=== PATIENT | female | born 1960 | race American Indian/Alaskan Native ===

== ENCOUNTER 2017-02-23 01:38 | Emergency (ER) | payer MEDICAID, OTHER ==
[2017-02-23 01:39] VITALS: BMI 58.5
[2017-02-23 01:46] VITALS: BP 123/92; PULSE 85; RESP 18; TEMP 98.1; O2SAT 98
--- NOTE | 2017-02-23 02:17 | ED PDOC ---
HPI: Chest Pain Time Seen by Provider: 02/23/17 01:49 Chief Complaint (Nursing): Chest Pain Chief Complaint (Provider): chest pain History Per: Patient History/Exam Limitations: no limitations Onset/Duration Of Symptoms: Hrs (3) Current Symptoms Are (Timing): Still Present Additional Complaint(s): 56yo female well known to this provider for multiple previous visits due to recurrent chest pain and anxiety and hx of opiate seeking behavior presents to the ED with c/o chest pain x 3 hours. Patient states she has chest pain related to anxiety and reports not having Ativan which she normally takes for anxiety. Denies n/v, diaphoresis, fever, cough. Patient was seen and evaluated in this ED for similar complaint on 02/01/2017 and 02/10/2017 and discharged. Past Medical History Reviewed: Historical Data, Nursing Documentation, Vital Signs Vital Signs: Last Vital Signs Temp 98.1 F 02/23/17 01:43 Pulse 85 02/23/17 01:43 Resp 18 02/23/17 01:43 BP 123/92 H 02/23/17 01:43 Pulse Ox 98 02/23/17 02:21 - Medical History PMH: Anemia, Anxiety, Arthritis, Asthma, Bronchitis, CAD, CHF, Crohn's Disease, Depression, Deep Vein Thrombosis, Gastritis, Gastrointestinal Ulcer, Gall Bladder Disease, HTN, Hypercholesterolemia, Hyperlipidemia, Malignancy (Colon), Migraine, Peripheral Edema, Pulmonary Embolism, Seizures Denies: Chronic Kidney Disease, Sexually Transmitted Disease - Surgical History Surgical History: Cholecystectomy - Family History Family History: States: Unknown Family Hx, [place], CAD - Social History Current smoker - smoking cessation education provided: No Alcohol: None Drugs: Denies - Immunization History Hx Tetanus Toxoid Vaccination: Yes Hx Influenza Vaccination: Yes Hx Pneumococcal Vaccination: Yes - Home Medications Home Medications: Ambulatory Orders Medication Instructions Recorded Ferrous Sulfate [Feosol] 325 mg PO DAILY 02/29/16 Omeprazole [Prilosec] 40 mg PO DAILY 03/21/16 HYDROmorphone [Dilaudid] 2 mg PO TID #9 tab 08/07/16 Phenytoin, Extended [Dilantin] 100 mg PO QID #16 cer 08/07/16 Albuterol HFA [Ventolin HFA 90 2 puff IH TID 10/07/16 mcg/actuation (8 g)] DiphenhydrAMINE [Benadryl] 25 mg PO PRN PRN 10/07/16 LORazepam [Ativan] 2 mg PO BID 10/07/16 - Allergies Allergies/Adverse Reactions: Allergies Allergy/AdvReac Type Severity Reaction Status Date / Time benzethonium chloride Allergy Intermediate URTICARIA Verified 02/10/17 14:32 benzocaine Allergy Unknown ITCHING Verified 02/10/17 14:32 broccoli Allergy Unknown ITCHING Verified 02/10/17 14:32 ketorolac tromethamine Allergy Unknown ANAPHYLAXIS Verified 02/10/17 14:32 [From Toradol] lidocaine Allergy Unknown ITCHING Verified 02/10/17 14:32 nitroglycerin Allergy Unknown URTICARIA Verified 02/10/17 14:32 pineapple Allergy Unknown ITCHING Verified 02/10/17 14:32 trazodone Allergy Unknown "heart Verified 02/10/17 14:32 flutters", swelling haloperidol [From Haldol] Allergy VOMITING Verified 02/10/17 14:32 haloperidol lactate Allergy VOMITING Verified 02/10/17 14:32 [From Haldol] oxycodone Allergy SHORTNESS Verified 02/10/17 14:32 OF BREATH ziprasidone HCl [From Geodon] Allergy SHORTNESS Verified 02/10/17 14:32 OF BREATH ziprasidone mesylate Allergy SHORTNESS Verified 02/10/17 14:32 [From Geodon] OF BREATH aspirin AdvReac Unknown "heart Verified 02/10/17 14:32 flutters", swelling steroids Allergy Unknown "heart Uncoded 02/10/17 14:32 flutters", swelling Lanacane Allergy SHORTNESS Uncoded 02/10/17 14:32 OF BREATH Steroids Allergy SHORTNESS Uncoded 02/10/17 14:32 OF BREATH Review of Systems ROS Statement: Except As Marked, All Systems Reviewed And Found Negative Constitutional: Positive for: Other (no diaphoresis ). Negative for: Fever Cardiovascular: Positive for: Chest Pain Respiratory: Negative for: Cough Gastrointestinal: Negative for: Nausea, Vomiting Psych: Positive for: Anxiety Physical Exam - Reviewed Nursing Documentation Reviewed: Yes Vital Signs Reviewed: Yes - Physical Exam Appears: Positive for: Well, No Acute Distress Head Exam: Positive for: ATRAUMATIC, NORMAL INSPECTION, NORMOCEPHALIC Skin: Positive for: Normal Color, Warm, Dry Eye Exam: Positive for: Normal appearance, EOMI, PERRL ENT: Positive for: Normal ENT Inspection Neck: Positive for: Normal, Painless ROM, Supple Cardiovascular/Chest: Positive for: Regular Rate, Rhythm. Negative for: Murmur , Tachycardia Respiratory: Positive for: Normal Breath Sounds. Negative for: Wheezing, Respiratory Distress Gastrointestinal/Abdominal: Positive for: Normal Exam, Bowel Sounds, Soft. Negative for: Tenderness Back: Positive for: Normal Inspection. Negative for: L CVA Tenderness, R CVA Tenderness Extremity: Positive for: Normal ROM. Negative for: Deformity, Swelling Neurologic/Psych: Positive for: Alert, Oriented. Negative for: Motor/Sensory Deficits - ECG O2 Sat by Pulse Oximetry: 98 Pulse Ox Interpretation: Normal (RA) Medical Decision Making Medical Decision Makin: Impression: 56yo female w/ anxiety and chest pain in setting of known opiate seeking behavior Plan: Provider informed patient she will not be administered opiates. Patient will be given 1 dose of oral Ativan. EKG and troponin ordered. Reassess 0400: Labs reviewed, show no clinically significant abnormalities. Patient reports improvement in symptoms and is stable for d/c. Dx: anxiety, atypical chest pain stable Scribe Attestation: Documented by Dhruv Ty acting as a scribe for Doug Marinelli MD. Provider Scribe Attestation: All medical record entries made by the Scribe were at my direction and personally dictated by me. I have reviewed the chart and agree that the record accurately reflects my personal performance of the history, physical exam, medical decision making, and the department course for this patient. I have also personally directed, reviewed, and agree with the discharge instructions and disposition. Disposition - Clinical Impression Clinical Impression: Anxiety, Atypical chest pain - Patient ED Disposition Is Patient to be Admitted: No - Disposition [facility] Disposition: Routine/Home Disposition Time: 04:00 Condition: STABLE Instructions: Chest Pain (ED), Anxiety (ED)
--- NOTE | 2017-02-23 08:52 | CARD ---
APPROVED REPORT EKG Measurement Heart [id number] CT [id number] <Conclusion> Normal sinus rhythm Possible Anterolateral infarct, age undetermined Abnormal ECG
== END 2017-02-23 04:16 | disposition home or self-care (01) ==
LOC: H.ER 01:38
DX: R07.89 Other chest pain (principal); F41.9 Anxiety disorder, unspecified; D64.9 Anemia, unspecified; I50.9 Heart failure, unspecified; K50.90 Crohn's disease, unspecified, without complications; Z85.038 Personal history of other malignant neoplasm of large intestine; Z86.711 Personal history of pulmonary embolism; Z86.718 Personal history of other venous thrombosis and embolism; I25.10 Atherosclerotic heart disease of native coronary artery without angina pectoris

== ENCOUNTER 2018-01-25 15:59 | Emergency (ER) | payer MEDICAID, OTHER ==
[2018-01-25 15:59] VITALS: BMI 31.1
[2018-01-25 16:04] VITALS: RESP 16; TEMP 98.1
--- NOTE | 2018-01-25 17:31 | ED PDOC ---
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 Patient states she developed anxiety followed by a chest pain described as tightness and rates it an 8/10. Patient reports similar symptoms and states she normally takes Ativan 2mg BID but she has not taken in the past x2 days. She also reports taking Lovenox daily for history of blood clots to left lower leg. She denies any shortness of breath, leg swelling, nausea, vomit, abdominal pain, fever or chills. PMD: Kyara Past Medical History Reviewed: Historical Data, Nursing Documentation, Vital Signs Vital Signs: Last Vital Signs Temp 98.1 F 01/25/18 18:49 Pulse 85 01/25/18 19:39 Resp 16 01/25/18 18:49 BP 142/71 01/25/18 18:49 Pulse Ox 100 01/25/18 19:39 - Medical History PMH: Anemia, Anxiety, Arthritis, Asthma, Bronchitis, CAD, CHF, Crohn's Disease, Depression, Deep Vein Thrombosis, Gastritis, Gastrointestinal Ulcer, Gall Bladder Disease, HTN, Hypercholesterolemia, Hyperlipidemia, Malignancy (Colon), Migraine, Peripheral Edema, Pulmonary Embolism, Seizures Denies: Chronic Kidney Disease, Sexually Transmitted Disease - Surgical History Surgical History: Cholecystectomy - Family History Family History: States: Unknown Family Hx, [place], CAD - Social History Ex-Smoker (has not smoked in the last 12 months): Yes Alcohol: None Drugs: Prescription medications (Pain medications) - Home Medications Home Medications: Ambulatory Orders Medication Instructions Recorded Enoxaparin [Lovenox] 80 mg SC BID 06/27/17 HYDROmorphone [Dilaudid] 2 mg PO QID 06/27/17 LORazepam [Ativan] 2 mg PO TID 06/27/17 - Allergies Allergies/Adverse Reactions: Allergies Allergy/AdvReac Type Severity Reaction Status Date / Time benzethonium chloride Allergy Intermediate URTICARIA Verified 11/12/17 07:18 benzocaine Allergy Unknown ITCHING Verified 11/12/17 07:18 broccoli Allergy Unknown ITCHING Verified 11/12/17 07:18 ketorolac tromethamine Allergy Unknown ANAPHYLAXIS Verified 11/12/17 07:18 [From Toradol] lidocaine Allergy Unknown ITCHING Verified 11/12/17 07:18 nitroglycerin Allergy Unknown URTICARIA Verified 11/12/17 07:18 pineapple Allergy Unknown ITCHING Verified 11/12/17 07:18 trazodone Allergy Unknown "heart Verified 11/12/17 07:18 flutters", swelling haloperidol [From Haldol] Allergy VOMITING Verified 11/12/17 07:18 haloperidol lactate Allergy VOMITING Verified 11/12/17 07:18 [From Haldol] oxycodone Allergy SHORTNESS Verified 11/12/17 07:18 OF BREATH ziprasidone HCl [From Geodon] Allergy SHORTNESS Verified 11/12/17 07:18 OF BREATH ziprasidone mesylate Allergy SHORTNESS Verified 11/12/17 07:18 [From Geodon] OF BREATH aspirin AdvReac Unknown "heart Verified 11/12/17 07:18 flutters", swelling Lanacane Allergy SHORTNESS Uncoded 11/12/17 07:18 OF BREATH Steroids Allergy SHORTNESS Uncoded 11/12/17 07:18 OF BREATH steroids Allergy "heart Uncoded 11/12/17 07:18 flutters", swelling Review of Systems ROS Statement: Except As Marked, All Systems Reviewed And Found Negative Constitutional: Negative for: Fever, Chills Cardiovascular: Positive for: Chest Pain (tightness) Respiratory: Negative for: Shortness of Breath Gastrointestinal: Negative for: Nausea, Vomiting, Abdominal Pain Musculoskeletal: Negative for: Leg Pain (swelling) Psych: Positive for: Anxiety Physical Exam - Reviewed Nursing Documentation Reviewed: Yes Vital Signs Reviewed: Yes - Physical Exam Comments: GENERAL APPEARANCE: Patient is awake, alert, oriented x 3, in no acute distress. Anxious appearing SKIN: Warm, dry; (-) cyanosis HEAD: (-) scalp swelling, (-) scalp tenderness. EYES: (-) conjunctival pallor, (-) scleral icterus, (-) nystagmus. ENMT: Mucous membranes moist. Airway patent: (-) stridor. NECK: Supple, FROM (-) tenderness, (-) stiffness HEART AND CARDIOVASCULAR: (-) irregularity; (-) murmur, (-) gallop. CHEST AND RESPIRATORY: CTA B/L ; (-) rales, (-) rhonchi, (-) wheezes; breath sounds equal, even and unlabored. Speaking full sentences, respirations even and nonlabored. ABDOMEN: Soft, (-) distention, (-) tenderness, (-) guarding. NEURO AND PSYCH: Mental status as above. Affect: Calm and cooperative. industrial training specialist: Intact. Pupils equal and reactive; EOMI; (-) facial asymmetry; tongue and uvula midline. Strength symmetric. - ECG ECG Rhythm: Positive for: Sinus Rhythm. Negative for: ST/T Changes Interpretation Of ECG: Prolonged QT, QTc 464, No ectopy. Rate: 85 O2 Sat by Pulse Oximetry: 100 (RA) Pulse Ox Interpretation: Normal Medical Decision Making Medical Decision Making: Initial Impression: Anxiety, chest discomfort. Initial Plan: --CMP --Troponin I --CBC w/ differential --Chest two views (PA/LAT) [RAD] --Ativan 2 mg IM --Saline Lock --Reevaluation -Upon review of chart, patient has multiple ED visits for anxiety and requesting Ativan. -Per discussion with patient she had a negative stress test 6 to 8 months ago and follows up with [facility] in a few weeks for her colon CA. 18:02 CXR FINDINGS: LUNGS: No active pulmonary disease. PLEURA: No significant pleural effusion identified. No pneumothorax apparent. CARDIOVASCULAR: No radiographic findings to suggest acute or significant cardiovascular disease. OSSEOUS STRUCTURES: No significant abnormalities. VISUALIZED UPPER ABDOMEN: Normal. OTHER FINDINGS: None. IMPRESSION: No active disease. No significant interval change compared to the prior examination(s). 1900 On re-evaluation, patient reports improvement of symptoms, denies any chest pain , SOB, or dyspnea. On exam, patient remains AAOx3, in no acute distress. Lungs clear to auscultation, cardiac RRR, abdomen soft, non-tender, repeat neuro exam shows no focal findings. VSS. Repeat BP: 142/71 Repeat HR: 90 Repeat O2: 100% on RA Diagnostic results d/w the patient in great detail. Diagnosis of anxiety, panic attack d/w the patient. Based on history, exam and diagnostic results, plan will be for outpatient follow up. Patient instructed to follow-up with pmd / referral provided / the clinic in 1- 2 days without fail. Advised to take medication as prescribed. Return to the emergency room at any time for any new or worsening symptoms. Patient states she fully agrees with and understands discharge instructions. States that she agrees with the plan and disposition. Verbalized and repeated discharge instructions and plan. I have given the patient opportunity to ask any additional questions. Scribe Attestation: Documented by Morgan Caba, acting as a scribe for Khadra Oseguera PA-C Provider Scribe Attestation: All medical record entries made by the Scribe were at my direction and personally dictated by me. I have reviewed the chart and agree that the record accurately reflects my personal performance of the history, physical exam, medical decision making, and the department course for this patient. I have also personally directed, reviewed, and agree with the discharge instructions and disposition. Disposition - Clinical Impression Clinical Impression: Panic attack, Chest discomfort, Anxiety - Patient ED Disposition Is Patient to be Admitted: No Counseled Patient/Family Regarding: Studies Performed, Diagnosis, Need For Followup, Rx Given - Disposition Referrals: Keaton Sparrow MD [Family Provider] - Disposition: Routine/Home Disposition Time: 19:16 Condition: STABLE Instructions: Panic Disorder, Chest Pain That Is Not Caused by the Heart (DC), Anxiety, Adult (DC) Forms: [employer] (Argentine) Print Language: BOLIVIAN - POA Present On Arrival: None
--- NOTE | 2018-01-25 18:03 | RAD ---
HISTORY: Chest pain COMPARISON: 10/03/2016 TECHNIQUE: Chest PA and lateral FINDINGS: LUNGS: No active pulmonary disease. PLEURA: No significant pleural effusion identified. No pneumothorax apparent. CARDIOVASCULAR: No radiographic findings to suggest acute or significant cardiovascular disease. OSSEOUS STRUCTURES: No significant abnormalities. VISUALIZED UPPER ABDOMEN: Normal. OTHER FINDINGS: None. IMPRESSION: No active disease. No significant interval change compared to the prior examination(s).
[2018-01-25 18:51] VITALS: BP 142/71
[2018-01-25 19:02] VITALS: PULSE 85; O2SAT 100
== END 2018-01-25 19:53 | disposition home or self-care (01) ==
LOC: H.ER 15:59
DX: F41.0 Panic disorder [episodic paroxysmal anxiety] (principal); F41.9 Anxiety disorder, unspecified; E78.00 Pure hypercholesterolemia, unspecified; I11.0 Hypertensive heart disease with heart failure; K50.90 Crohn's disease, unspecified, without complications; Z85.038 Personal history of other malignant neoplasm of large intestine; Z86.711 Personal history of pulmonary embolism; Z86.718 Personal history of other venous thrombosis and embolism; Z88.5 Allergy status to narcotic agent
CPT/HCPCS: 71046; 96372; 99282; J2060

== ENCOUNTER 2018-02-23 22:08 | Emergency (ER) | payer MEDICAID, OTHER ==
[2018-02-23 22:08] VITALS: BMI 38.4
[2018-02-23 22:21] VITALS: RESP 18; TEMP 98.1; O2SAT 95
[2018-02-23 22:35] VITALS: BP 130/72; PULSE 81
--- NOTE | 2018-02-23 22:45 | ED PDOC ---
HPI: Chest Pain Time Seen by Provider: 02/23/18 22:19 Chief Complaint (Nursing): Chest Pain Chief Complaint (Provider): chest pain History Per: Patient History/Exam Limitations: no limitations Onset/Duration Of Symptoms: Days (1), Gradual, Persistent Additional Complaint(s): 57yo woman w h/o copd, htn, seizure, anxiety w benzo dependence , reporting chest pain for 1 day which she believes is due to anxiety because she has not taken her Ativan for 2 days. She normally takes Ativan 2mg twice a day but the bottle she had filled recently was missing from her medicine cabinet and she is unable to get refill because it is not yet due through insurance until March 04. Also reporting back pain which she also has chronically but says it's worse. PMD Dr Sparrow. Past Medical History Reviewed: Historical Data, Nursing Documentation, Vital Signs Vital Signs: Last Vital Signs Temp 98.1 F 02/23/18 22:16 Pulse 81 02/23/18 22:33 Resp 18 02/23/18 22:16 BP 130/72 02/23/18 22:33 Pulse Ox 95 02/23/18 22:16 - Medical History PMH: Anemia, Anxiety, Arthritis, Asthma, Bronchitis, CAD, CHF, Crohn's Disease, Depression, Deep Vein Thrombosis, Gastritis, Gastrointestinal Ulcer, Gall Bladder Disease, HTN, Hypercholesterolemia, Hyperlipidemia, Malignancy (Colon), Migraine, Peripheral Edema, Pulmonary Embolism, Seizures (epilepsy) Denies: Chronic Kidney Disease, Sexually Transmitted Disease - Surgical History Surgical History: Cholecystectomy - Family History Family History: States: Unknown Family Hx, [place], CAD - Immunization History Hx Tetanus Toxoid Vaccination: No Hx Influenza Vaccination: Yes Hx Pneumococcal Vaccination: Yes - Home Medications Home Medications: Ambulatory Orders Medication Instructions Recorded Enoxaparin [Lovenox] 80 mg SC BID 06/27/17 HYDROmorphone [Dilaudid] 2 mg PO QID 06/27/17 LORazepam [Ativan] 2 mg PO TID 06/27/17 LORazepam [Ativan] 1 mg PO TID #12 tab 01/30/18 Phenytoin [Dilantin] 100 mg PO Q4 01/30/18 - Allergies Allergies/Adverse Reactions: Allergies Allergy/AdvReac Type Severity Reaction Status Date / Time benzethonium chloride Allergy Intermediate URTICARIA Verified 02/17/18 21:34 benzocaine Allergy Unknown ITCHING Verified 02/17/18 21:34 broccoli Allergy Unknown ITCHING Verified 02/17/18 21:34 ketorolac tromethamine Allergy Unknown ANAPHYLAXIS Verified 02/17/18 21:34 [From Toradol] lidocaine Allergy Unknown ITCHING Verified 02/17/18 21:34 nitroglycerin Allergy Unknown URTICARIA Verified 02/17/18 21:34 pineapple Allergy Unknown ITCHING Verified 02/17/18 21:34 trazodone Allergy Unknown "heart Verified 02/17/18 21:34 flutters", swelling haloperidol [From Haldol] Allergy VOMITING Verified 02/17/18 21:34 haloperidol lactate Allergy VOMITING Verified 02/17/18 21:34 [From Haldol] oxycodone Allergy SHORTNESS Verified 01/30/18 13:44 OF BREATH ziprasidone HCl [From Geodon] Allergy SHORTNESS Verified 01/30/18 13:44 OF BREATH ziprasidone mesylate Allergy SHORTNESS Verified 01/30/18 13:44 [From Geodon] OF BREATH aspirin AdvReac Unknown "heart Verified 01/30/18 13:44 flutters", swelling Lanacane Allergy SHORTNESS Uncoded 01/30/18 13:44 OF BREATH Steroids Allergy SHORTNESS Uncoded 01/30/18 13:44 OF BREATH steroids Allergy "heart Uncoded 01/30/18 13:44 flutters", swelling Review of Systems ROS Statement: Except As Marked, All Systems Reviewed And Found Negative (and as per HPI) Constitutional: Positive for: Weakness, Malaise Cardiovascular: Positive for: Chest Pain Respiratory: Positive for: Shortness of Breath Musculoskeletal: Positive for: Back Pain, Other (Diffuse bodyaches) Neurological: Negative for: Weakness, Numbness Psych: Positive for: Anxiety Physical Exam - Reviewed Nursing Documentation Reviewed: Yes Vital Signs Reviewed: Yes - Physical Exam Appears: Positive for: Non-toxic, No Acute Distress Head Exam: Positive for: ATRAUMATIC, NORMOCEPHALIC Skin: Positive for: Warm, Dry Eye Exam: Positive for: EOMI, PERRL ENT: Negative for: Pharyngeal Erythema, Tonsillar Exudate Neck: Positive for: Painless ROM, Supple Cardiovascular/Chest: Positive for: Regular Rate, Rhythm, Chest Non Tender. Negative for: Murmur Respiratory: Positive for: Normal Breath Sounds. Negative for: Wheezing, Respiratory Distress Gastrointestinal/Abdominal: Positive for: Soft. Negative for: Tenderness Back: Positive for: Normal Inspection. Negative for: Decreased ROM Extremity: Positive for: Normal ROM, Pedal Edema Lymphatic: Negative for: Adenopathy Neurologic/Psych: Positive for: Alert, Oriented (x3), Mood/Affect (anxious mood but flat affect). Negative for: Motor/Sensory Deficits - ECG O2 Sat by Pulse Oximetry: 95 - Progress ED Course And Treament: Reviewed pt previous charts and prescription history on [place] database Pt's history c/w dependence and drug seeking behavior, specifically Ativan. Multiple prescriptions of dilaudid and ativan from the last year, as well as multiple visits for additional doses to various hospitals, support this. Advised that we will do full workup for chest pain to identify and treat emergent or urgent issues (cardiac/pulmonary) but will not be providing pt with Ativan in ER nor prescriptions. Medically this would be the safest course for this particular patient. If serious medical conditions are ruled out, then will provide patient with Addiction resources. Following this discussion, pt decided that she did not want to have any further evaluation in ER and left before treatment complete, before being able to discuss or sign AMA. Disposition - Clinical Impression Clinical Impression: Chest pain - Disposition Disposition: Left W/O Treatment Disposition Time: 22:45 Condition: UNKNOWN
--- NOTE | 2018-02-24 15:18 | CARD ---
APPROVED REPORT EKG Measurement Heart [id number] <Conclusion> Normal sinus rhythm Possible Left atrial enlargement Nonspecific ST abnormality Abnormal ECG
== END 2018-02-23 22:45 | disposition left against medical advice (07) ==
LOC: H.ER 22:08
DX: R07.89 Other chest pain (principal)

== ENCOUNTER 2018-07-02 09:23 | Emergency (ER) | payer MEDICAID, OTHER ==
[2018-07-02 09:36] VITALS: BMI 39.3
[2018-07-02] MEDS ORDERED: Albuterol-Ipratrop 3 mg / 0.5 (3 ml) UD INH STA (09:37)
[2018-07-02] MEDS ORDERED: Magnesium Sulfate 2 gm/50 ml 2 GM/50 ML BAG IVPB STA (09:38)
[2018-07-02] MEDS ORDERED: Magnesium Sulfate 2 gm/50 ml 2 GM/50 ML BAG ONE (09:42)
[2018-07-02 09:46] VITALS: TEMP 97.5; O2SAT 100
--- NOTE | 2018-07-02 09:54 | ED PDOC ---
HPI: Chest Pain Time Seen by Provider: 07/02/18 09:29 Chief Complaint (Nursing): Chest Pain Chief Complaint (Provider): Chest Pain History Per: Patient History/Exam Limitations: clinical condition Onset/Duration Of Symptoms: Other (Prior to arrival) Additional Complaint(s): 58 years old female with history of previous stroke, anxiety, asthma and hypertension brought to the ED by EMS for evaluation of possible stroke. Per EMS , patient is Turkish speaking and possibly having a stroke. Patient reports anxiety attack, shortness of breath, and tingling of hands and lips. Per evaluation of patient, patient denies any weakness or chest pain at this time. Limited information can be collected, patient gave a piece of paper with medical conditions and allergies. Unable to obtain full HPI at this point. PMD: non provided Past Medical History Reviewed: Historical Data, Nursing Documentation, Vital Signs Vital Signs: Last Vital Signs Temp 97.5 F L 07/02/18 09:25 Pulse 81 07/02/18 10:30 Resp 16 07/02/18 10:30 BP 118/76 07/02/18 15:45 Pulse Ox 100 07/02/18 15:41 - Medical History PMH: Anemia, Anxiety, Arthritis, Asthma, Bronchitis, CAD, CHF, Crohn's Disease, Depression, Deep Vein Thrombosis, Gastritis, Gastrointestinal Ulcer, Gall Bladder Disease, HTN, Hypercholesterolemia, Hyperlipidemia, Malignancy (Colon), Migraine, Peripheral Edema, Pulmonary Embolism, Seizures Denies: Diabetes, Hepatitis, HIV, Chronic Kidney Disease, Sexually Transmitted Disease - Surgical History Surgical History: Cholecystectomy - Family History Family History: States: Unknown Family Hx, [place], CAD - Immunization History Hx Tetanus Toxoid Vaccination: No Hx Influenza Vaccination: Yes (2016) Hx Pneumococcal Vaccination: Yes - Home Medications Home Medications: Ambulatory Orders Medication Instructions Recorded Enoxaparin [Lovenox] 80 mg SC BID 06/27/17 Esomeprazole Magnesium [Nexium 40 mg PO DAILY #10 capsule. 05/24/18 24Hr] Phenytoin, Extended [Dilantin 100 mg PO QID #120 cer 05/24/18 [place]] HYDROmorphone [Dilaudid 2 mg Tab] 2 mg PO QID PRN 07/01/18 LORazepam [Ativan] 2 mg PO BID 07/01/18 Potassium 1 tab PO DAILY 07/01/18 amLODIPine [Norvasc] 10 mg PO DAILY 07/01/18 - Allergies Allergies/Adverse Reactions: Allergies Allergy/AdvReac Type Severity Reaction Status Date / Time aspirin Allergy SHORTNESS Verified 07/02/18 09:46 OF BREATH benzethonium chloride Allergy URTICARIA Verified 07/02/18 09:46 benzocaine Allergy ITCHING Verified 07/02/18 09:46 broccoli Allergy ITCHING Verified 07/02/18 09:46 haloperidol Allergy VOMITING Verified 07/02/18 09:46 ketorolac Allergy ANAPHYLAXIS Verified 07/02/18 09:46 lidocaine Allergy ITCHING Verified 07/02/18 09:46 nitroglycerin Allergy URTICARIA Verified 07/02/18 09:46 oxycodone Allergy SHORTNESS Verified 07/02/18 09:46 OF BREATH pineapple Allergy ITCHING Verified 07/02/18 09:46 trazodone Allergy SWELLING Verified 06/23/18 21:49 ziprasidone [From Geodon] Allergy SHORTNESS Verified 06/23/18 21:49 OF BREATH steroids Allergy "heart Uncoded 06/23/18 21:49 flutters", swelling Review of Systems ROS Statement: Except As Marked, All Systems Reviewed And Found Negative ENT: Positive for: Other (Tingling of lips) Cardiovascular: Negative for: Chest Pain Respiratory: Positive for: Shortness of Breath Musculoskeletal: Positive for: Hand Pain (tingling) Neurological: Negative for: Weakness Psych: Positive for: Anxiety (attack) Physical Exam - Reviewed Nursing Documentation Reviewed: Yes Vital Signs Reviewed: Yes - Physical Exam Appears: Positive for: Non-toxic (Patient is anxious, smells of urine) Head Exam: Positive for: ATRAUMATIC, NORMOCEPHALIC Skin: Positive for: Normal Color, Warm, Dry Eye Exam: Positive for: Normal appearance, EOMI, PERRL ENT: Positive for: Normal ENT Inspection Neck: Positive for: Normal (No JVD), Painless ROM, Supple Cardiovascular/Chest: Positive for: Regular Rate, Rhythm. Negative for: Murmur Respiratory: Positive for: Wheezing (Audible wheezing without stethoscope, diffused expiratory wheezing bilaterally.), Respiratory Distress (mild), Other ( Decreased air entry) Gastrointestinal/Abdominal: Positive for: Normal Exam, Soft. Negative for: Tenderness Extremity: Positive for: Normal ROM Neurologic/Psych: Positive for: Alert, Oriented (x3), Other (Sensation intact, intact cranial nerve 2 to 12, proprioception intact. Patient is anxious not answering questions) - Laboratory Results Result Diagrams: 07/02/18 13:00 07/02/18 11:06 - ECG O2 Sat by Pulse Oximetry: 100 (RA) Pulse Ox Interpretation: Normal Medical Decision Making Medical Decision Making: Time: 935 A/P: asthma attack with anxiety attack --YESSICA stroke scale of 0 at this point --will give Duoneb and magnesium, will not give steroid due to allergy --1 mg Ativan for anxiety --close observation and frequent reassessment --will reassess possibility of stroke based on symptoms reported by EMS, however , not likely at this time --Labs --normal EKG results 1242 Chest X-Ray FINDINGS: LUNGS: No active pulmonary disease. PLEURA: No significant pleural effusion identified, no pneumothorax apparent. CARDIOVASCULAR: Mild cardiomegaly reiterated. No pulmonary vascular congestion. OSSEOUS STRUCTURES: No significant abnormalities. VISUALIZED UPPER ABDOMEN: Normal. OTHER FINDINGS: None. IMPRESSION: No interval acute cardiopulmonary disease appreciated.Mild cardiomegaly not significantly changed. No pulmonary vascular congestion appreciable. 1328 --Patient complains of chest pain at this time --will give magnesium and add on troponin --Reeval patient again 15:30 Further discussion with patient she states she is allergic to all steroids and has developed "trouble breathing" after Solumedrol, Prednisone, and all steroids". Pt states she refuses to try any steroids. Pt to get CT chest as she mentioned that she previously had a PE and this feels similar. PT states she is supposed to be on Lovenox but is unsure if she has taken it recently. spoke to radiologist regarding poor access (only has left EJ 24g IV line despite MD attempts with ultrasound guidance). Radiologist states that images will most likely be limited but can attempt CT angio regardless. ----- Scribe Attestation: Documented by Carol Ann Mercado, acting as a scribe for Khadra Wolfe MD. Provider Scribe Attestation: All medical record entries made by the Scribe were at my direction and personally dictated by me. I have reviewed the chart and agree that the record accurately reflects my personal performance of the history, physical exam, medical decision making, and the department course for this patient. I have also personally directed, reviewed, and agree with the discharge instructions and disposition. Disposition - Clinical Impression Clinical Impression: Chest pain, Anxiety, Asthma attack - Disposition Disposition: Eloped Disposition Time: 14:25 Condition: STABLE Forms: [employer] (Qatari)
[2018-07-02 11:22] LABS: BLOOD UREA NITROGEN 12 mg/dl (7-17); CALCIUM 8.5 mg/dL (8.4-10.2); GFR NON-AFRICAN AMERICAN > 60
[2018-07-02 12:28] VITALS: PULSE 81; RESP 16
--- NOTE | 2018-07-02 12:44 | RAD ---
Date of service: 07/02/2018 HISTORY: possible admission COMPARISON: No prior. FINDINGS: LUNGS: No active pulmonary disease. PLEURA: No significant pleural effusion identified, no pneumothorax apparent. CARDIOVASCULAR: Mild cardiomegaly reiterated. No pulmonary vascular congestion. OSSEOUS STRUCTURES: No significant abnormalities. VISUALIZED UPPER ABDOMEN: Normal. OTHER FINDINGS: None. IMPRESSION: No interval acute cardiopulmonary disease appreciated.Mild cardiomegaly not significantly changed. No pulmonary vascular congestion appreciable.
[2018-07-02 13:08] LABS: BASO % 0.5 % (0.0-2.0); EOS % 0.9 % (0.0-4.0); HEMOGLOBIN 13.4 g/dL (12.0-16.0); LYMPH # 1.3 K/uL (1.0-4.3); LYMPH % 28.6 % (20.0-40.0); MEAN CELL VOLUME 96.9 fl (81.0-99.0); MEAN CORPUSCULAR HEMOGLOBIN 32.4 pg (27.0-31.0); MEAN CORPUSCULAR HGB CONC 33.5 g/dL (33.0-37.0); MEAN PLATELET VOLUME 9.3 fl (7.2-11.7); MONO # 0.4 K/uL (0.0-0.8); MONO % 8.3 % (0.0-10.0); NEUT # 2.8 K/uL (1.8-7.0); NEUT % 61.7 % (50.0-75.0); NRBC % 0.1 % (0.0-0.0); RBC 4.14 Mil/uL (3.80-5.20); RED CELL DISTRIBUTION WIDTH 13.9 % (11.5-14.5); WHITE BLOOD COUNT 4.5 K/uL (4.8-10.8)
[2018-07-02] MEDS ORDERED: Iodixanol 320 MG/ML 100 ML BOTTLE IV ONE (15:49)
[2018-07-02] MEDS ORDERED: Sodium Chloride 0.9% 0 ML IV ONE (15:49)
[2018-07-02 16:39] VITALS: BP 118/76
--- NOTE | 2018-07-02 19:13 | CARD ---
APPROVED REPORT Date of service: 07/02/2018 <Conclusion> Normal sinus rhythm ST & T wave abnormality, consider inferior ischemia Abnormal ECG
== END 2018-07-02 16:25 | disposition left against medical advice (07) ==
LOC: H.ER 09:23
DX: R07.89 Other chest pain (principal); F41.9 Anxiety disorder, unspecified; J45.909 Unspecified asthma, uncomplicated; E78.00 Pure hypercholesterolemia, unspecified; F41.0 Panic disorder [episodic paroxysmal anxiety]; I11.0 Hypertensive heart disease with heart failure; K50.90 Crohn's disease, unspecified, without complications; Z79.01 Long term (current) use of anticoagulants; Z85.038 Personal history of other malignant neoplasm of large intestine; Z86.711 Personal history of pulmonary embolism; Z86.718 Personal history of other venous thrombosis and embolism; Z86.73 Personal history of transient ischemic attack (TIA), and cerebral infarction without residual deficits
CPT/HCPCS: 71045; 80048; 84484; 85025; 93005; 94640; 96365; 96375; 99284; J2060

== ENCOUNTER 2019-01-07 10:41 | Inpatient (IN) | payer MEDICAID, OTHER ==
[2019-01-07 10:56] VITALS: BMI 32.8
--- NOTE | 2019-01-07 11:33 | ED PDOC ---
HPI: Chest Pain Time Seen by Provider: 01/07/19 10:59 Chief Complaint (Nursing): Chest Pain Chief Complaint (Provider): Chest Pain History Per: Patient History/Exam Limitations: no limitations Onset/Duration Of Symptoms: Hrs (today morning ) Current Symptoms Are (Timing): Still Present Quality: "Pain" Additional Complaint(s): 58 year old female presents to the ED complaining of right-sided chest pain that is radiating to her right shoulder onset today morning while getting on the lightrail. Patient has a past medical history of colon cancer, seizure disorder and DVT. Otherwise, she denies cough, fever, shortness of breath or swelling of the extremities. PMD: non [facility] provider Past Medical History Reviewed: Historical Data, Nursing Documentation, Vital Signs Vital Signs: Last Vital Signs Temp 97.9 F 01/07/19 10:56 Pulse 79 01/07/19 10:56 Resp 20 01/07/19 10:56 BP 153/87 H 01/07/19 10:56 Pulse Ox 98 01/07/19 10:56 - Medical History PMH: Anemia, Anxiety, Arthritis, Asthma, Bronchitis, CAD, CHF, Crohn's Disease, Depression, Deep Vein Thrombosis, Gastritis, Gastrointestinal Ulcer, Gall Bladder Disease, HIV, HTN, Hypercholesterolemia, Hyperlipidemia, Malignancy (Colon), Migraine, Peripheral Edema, Pulmonary Embolism, Seizures, TIA Denies: Diabetes, Hepatitis, Chronic Kidney Disease, Sexually Transmitted Disease - Surgical History Surgical History: Cholecystectomy - Family History Family History: States: Unknown Family Hx, [place], CAD - Social History Current smoker - smoking cessation education provided: No Alcohol: None Drugs: Denies - Immunization History Hx Tetanus Toxoid Vaccination: No Hx Influenza Vaccination: Yes (2016) Hx Pneumococcal Vaccination: Yes - Home Medications Home Medications: Ambulatory Orders Medication Instructions Recorded Enoxaparin [Lovenox] 80 mg SC BID 06/27/17 Esomeprazole Magnesium [Nexium 40 mg PO DAILY #10 capsule. 05/24/18 24Hr] LORazepam [Ativan] 2 mg PO BID 07/01/18 amLODIPine [Norvasc] 10 mg PO DAILY 07/01/18 levETIRAcetam [Keppra] 500 mg PO BID #60 tab 08/25/18 Clopidogrel [Plavix] 75 mg PO DAILY #30 tab 08/26/18 Amoxicillin [Amoxil 500 mg Cap] 500 mg PO TID #21 cap 12/20/18 - Allergies Allergies/Adverse Reactions: Allergies Allergy/AdvReac Type Severity Reaction Status Date / Time aspirin Allergy SHORTNESS Verified 01/04/19 14:44 OF BREATH benzethonium chloride Allergy URTICARIA Verified 01/04/19 14:44 benzocaine Allergy ITCHING Verified 01/04/19 14:44 broccoli Allergy ITCHING Verified 01/04/19 14:44 caffeine Allergy ITCHING Verified 01/04/19 14:44 codeine Allergy ITCHING Verified 01/04/19 14:44 haloperidol Allergy VOMITING Verified 01/04/19 14:44 ketorolac Allergy ANAPHYLAXIS Verified 01/04/19 14:44 nitroglycerin Allergy URTICARIA Verified 01/04/19 14:44 oxycodone Allergy SHORTNESS Verified 01/04/19 14:44 OF BREATH pineapple Allergy ITCHING Verified 01/04/19 14:44 trazodone Allergy SWELLING Verified 01/04/19 14:44 ziprasidone [From Geodon] Allergy SHORTNESS Verified 01/04/19 14:44 OF BREATH steroids Allergy "heart Uncoded 01/04/19 14:44 flutters", swelling Review of Systems ROS Statement: Except As Marked, All Systems Reviewed And Found Negative Cardiovascular: Positive for: Chest Pain Respiratory: Negative for: Cough, Shortness of Breath Musculoskeletal: Negative for: Other (swelling of extremities) Physical Exam - Reviewed Nursing Documentation Reviewed: Yes Vital Signs Reviewed: Yes - Physical Exam Appears: Positive for: Well, Non-toxic, No Acute Distress Head Exam: Positive for: ATRAUMATIC, NORMAL INSPECTION, NORMOCEPHALIC Skin: Positive for: Normal Color, Warm, DRY Eye Exam: Positive for: EOMI, Normal appearance, PERRL ENT: Positive for: Normal ENT Inspection Neck: Positive for: Normal, Painless ROM Cardiovascular/Chest: Positive for: Regular Rate, Rhythm Respiratory: Positive for: Normal Breath Sounds. Negative for: Respiratory Distress Gastrointestinal/Abdominal: Positive for: Normal Exam, Soft. Negative for: Tenderness Back: Positive for: Normal Inspection. Negative for: L CVA Tenderness, R CVA Tenderness Extremity: Positive for: Normal ROM. Negative for: Calf Tenderness, Swelling Neurological/Psych: Positive for: Awake, Alert, Normal Tone, Oriented (x3) - Laboratory Results Result Diagrams: 01/07/19 12:15 01/07/19 12:15 - ECG O2 Sat by Pulse Oximetry: 98 (RA) Pulse Ox Interpretation: Normal Medical Decision Making Medical Decision Making: Time: 1111 Impression: Given history of DVT and malignancy will r/o pulmonary embolism. Will do labs, CXR and EKG Plan: EKG CMP Dilantin Troponin CBC w/ Differential D Dimer [COAG] PT/INR Chest portable [RAD] Reevaluation Discussed with Dr. Starr. EKG reveals no avcute ST changes, Troponin nl. D-dimer <200, CXR reveals no acute disease. Will place in obs for chest pain and repeat troponins and cardiac monitoring ----- Scribe Attestation: Documented by Naye Scott, acting as a scribe Kerri Bustillos MD Provider Scribe Attestation: All medical record entries made by the Scribe were at my direction and person ally dictated by me. I have reviewed the chart and agree that the record accurately reflects my personal performance of the history, physical exam, medical decision making, and the department course for this patient. I have also personally directed, reviewed, and agree with the discharge instructions and disposition. Disposition - Clinical Impression Clinical Impression: Chest pain - Patient ED Disposition Is Patient to be Admitted: Yes - Disposition Disposition Time: 13:37 Condition: FAIR Forms: [employer]) - Pt Status Changed To: Hospital Disposition Of: Observation - POA Present On Arrival: None
[2019-01-07 12:49] LABS: BASO % 0.2 % (0.0-2.0); EOS % 0.5 % (0.0-4.0); HEMOGLOBIN 12.4 g/dL (12.0-16.0); LYMPH # 1.1 K/uL (1.0-4.3); LYMPH % 26.2 % (20.0-40.0); MEAN CELL VOLUME 95.1 fl (81.0-99.0); MEAN CORPUSCULAR HEMOGLOBIN 31.3 pg (27.0-31.0); MEAN CORPUSCULAR HGB CONC 32.9 g/dL (33.0-37.0); MONO # 0.5 K/uL (0.0-0.8); MONO % 11.2 % (0.0-10.0); NEUT # 2.5 K/uL (1.8-7.0); NEUT % 61.9 % (50.0-75.0); NRBC % 0.2 % (0.0-0.0); RBC 3.96 Mil/uL (3.80-5.20); RED CELL DISTRIBUTION WIDTH 13.9 % (11.5-14.5); WHITE BLOOD COUNT 4.1 K/uL (4.8-10.8)
[2019-01-07 12:56] LABS: INR 1.1; PROTHROMBIN TIME 12.9 Seconds (9.8-13.1)
[2019-01-07 12:58] LABS: ALB/GLOB RATIO 1.1 (1.0-2.1); ALBUMIN 4.1 g/dL (3.5-5.0); ALT/SGPT 37 U/L (9-52); AST/SGOT 29 U/L (14-36); BLOOD UREA NITROGEN 8 mg/dl (7-17); CALCIUM 8.9 mg/dL (8.4-10.2); GFR NON-AFRICAN AMERICAN > 60
[2019-01-07 13:10] LABS: D DIMER < 200 ng/mlDDU (0-230)
--- NOTE | 2019-01-07 14:02 | RAD ---
Date of service: 01/07/2019 HISTORY: cough COMPARISON: Portable chest 07/02/2018. FINDINGS: LUNGS: No active pulmonary disease. PLEURA: No significant pleural effusion identified, no pneumothorax apparent. CARDIOVASCULAR: No aortic atherosclerotic calcification present. Stable prominent cardiac silhouette. No pulmonary vascular congestion. OSSEOUS STRUCTURES: No significant abnormalities. VISUALIZED UPPER ABDOMEN: Normal. OTHER FINDINGS: None. IMPRESSION: Stable mild cardiomegaly. No pulmonary vascular congestion, infiltrate or pleural effusion bilaterally.
[2019-01-07] MEDS ORDERED: Acetaminophen/Cod NO 4 TAB PO PRN (15:04)
[2019-01-07] MEDS: Enoxaparin 100 mg Syringe SC SCH (16:43)
--- NOTE | 2019-01-07 18:36 | CP.PCM.CON ---
History of Present Illness - History of Present Illness History of Present Illness: Ziyad Sky, PGY-1, Cardiology Consult Note for Dr. Garvey 58 year old female with past medical history of Epilepsy, Anxiety, DVT, Clot in her leg currently, Previous PE, Anemia, Colon Cancer, hypertension, CVA presented with chest tightness that started yesterday. Patient describes it as pressure. Patient denies any trauma to chest recently. Patient reports pain on palpation but denies pain with ambulation or food consumption. Patient has no associated shortness of breath or nausea. 12-point ROS was unremarkable except for what was mentioned above. PMH: Epilepsy, Anxiety, DVT, Clot in her leg currently, Previous PE, Anemia, Colon Cancer, hypertension, CVA PSH: Hysterectomy; Colon resection; metal plate in rectum Allergies: Nitroglycerin, Toradol, ASA, Steroids, Pineapples SHx: Quit smoking 30 years ago (smoked 1 pack a week for 5 years); No drugs, no alcohol FMH: Father (Heart attack 36), 2 brothers have stents; Sister with heart transplant at age 50; Mother (heart problems; stomach cancer 67) Cardiac catheter in [place] 6 months ago (unremarkable); Cardiac cath before but does not remember when; Stress test 1.5 years ago at [facility] (unremarkable); Stress test in 2013 [place] PMD: Dr. Manny Duarte Lace Stripper: None Review of Systems - Review of Systems Review of Systems: except for what was mentioned in HPI Past Patient History - Infectious Disease Hx of Infectious Diseases: None - Tetanus Immunizations Tetanus Immunization: Up to Date - Past Medical History & Family History Past Medical History?: Yes - Past Social History Alcohol: None Drugs: Denies - CARDIAC Hx Congestive Heart Failure: Yes Hx Hypercholesterolemia: Yes Hx Hypertension: Yes Hx Peripheral Edema: Yes - PULMONARY Hx Asthma: Yes Hx Bronchitis: Yes Hx Pulmonary Embolism: Yes - NEUROLOGICAL Hx Migraine: Yes Hx Seizures: Yes Hx Transient Ischemic Attacks (TIA): Yes - HEENT Hx HEENT Problems: No - RENAL Hx Chronic Kidney Disease: No - HEMATOLOGICAL/ONCOLOGICAL Hx Anemia: Yes Hx Human Immunodeficiency Virus (HIV): Yes - INTEGUMENTARY Hx Dermatological Problems: No - MUSCULOSKELETAL/RHEUMATOLOGICAL Hx Arthritis: Yes - GASTROINTESTINAL Hx Crohn's Disease: Yes Hx Gall Bladder Disease: Yes Hx Gastritis: Yes - GENITOURINARY/GYNECOLOGICAL Hx Sexually Transmitted Disorders: No - PSYCHIATRIC Hx Anxiety: Yes Hx Depression: Yes - SURGICAL HISTORY Hx Cholecystectomy: Yes - ANESTHESIA Hx Anesthesia: Yes Hx Anesthesia Reactions: No Hx Malignant Hyperthermia: No Meds Allergies/Adverse Reactions: Allergies Allergy/AdvReac Type Severity Reaction Status Date / Time aspirin Allergy SHORTNESS Verified 01/04/19 14:44 OF BREATH benzethonium chloride Allergy URTICARIA Verified 01/04/19 14:44 benzocaine Allergy ITCHING Verified 01/04/19 14:44 broccoli Allergy ITCHING Verified 01/04/19 14:44 caffeine Allergy ITCHING Verified 01/04/19 14:44 codeine Allergy ITCHING Verified 01/04/19 14:44 haloperidol Allergy VOMITING Verified 01/04/19 14:44 ketorolac Allergy ANAPHYLAXIS Verified 01/04/19 14:44 nitroglycerin Allergy URTICARIA Verified 01/04/19 14:44 oxycodone Allergy SHORTNESS Verified 01/04/19 14:44 OF BREATH pineapple Allergy ITCHING Verified 01/04/19 14:44 trazodone Allergy SWELLING Verified 01/04/19 14:44 ziprasidone [From Geodon] Allergy SHORTNESS Verified 01/04/19 14:44 OF BREATH steroids Allergy "heart Uncoded 01/04/19 14:44 flutters", swelling - Medications Medications: Current Medications Acetaminophen/Codeine Phosphate (Tylenol/Cod 300 Mg-60 Mg) 1 tab PO Q6 PRN PRN Reason: Pain, severe (8-10) Amlodipine Besylate (Norvasc) 10 mg PO DAILY [facility] Enoxaparin Sodium (Lovenox) 100 mg SC BID [facility]; Protocol Last Admin: 01/07/19 16:43 Dose: 100 mg Hydrochlorothiazide (Microzide) 12.5 mg PO DAILY [facility] Lorazepam (Ativan) 2 mg PO BID [facility] Last Admin: 01/07/19 18:07 Dose: Not Given Losartan Potassium (Cozaar) 100 mg PO DAILY [facility] Phenytoin Sodium (Dilantin) 100 mg PO QID [facility] Last Admin: 01/07/19 16:42 Dose: 100 mg Physical Exam - Constitutional Appears: Well, Non-toxic, No Acute Distress - Head Exam Head Exam: ATRAUMATIC, NORMAL INSPECTION, NORMOCEPHALIC - Eye Exam Eye Exam: EOMI, PERRL - ENT Exam ENT Exam: Mucous Membranes Moist - Respiratory Exam Respiratory Exam: Clear to Auscultation Bilateral, NORMAL BREATHING PATTERN - Cardiovascular Exam Cardiovascular Exam: REGULAR RHYTHM, RRR Additional comments: pain with palpation of chest - GI/Abdominal Exam GI & Abdominal Exam: Normal Bowel Sounds, Soft. absent: Tenderness - Extremities Exam Extremities exam: Positive for: full ROM, normal inspection, pedal edema. Negative for: tenderness - Neurological Exam Neurological exam: Alert, CN II-XII Intact, Oriented x3 - Skin Skin Exam: Dry, Intact, Normal Color Results - Vital Signs Recent Vital Signs: Last Vital Signs Temp 97.6 F 01/07/19 17:28 Pulse 78 01/07/19 17:28 Resp 19 01/07/19 17:28 BP 140/83 01/07/19 17:28 Pulse Ox 98 01/07/19 17:28 - Labs Result Diagrams: 01/07/19 12:15 01/07/19 12:15 Labs: Laboratory Results - last 24 hr 01/07/19 01/07/19 01/07/19 12:15 12:15 12:15 WBC 4.1 L RBC 3.96 Hgb 12.4 Hct 37.7 MCV 95.1 MCH 31.3 H MCHC 32.9 L RDW 13.9 Plt Count 151 MPV 8.0 Neut % (Auto) 61.9 Lymph % (Auto) 26.2 [place] % (Auto) 11.2 H Eos % (Auto) 0.5 Baso % (Auto) 0.2 Neut # (Auto) 2.5 Lymph # (Auto) 1.1 [place] # (Auto) 0.5 Eos # (Auto) 0.0 Baso # (Auto) 0.0 PT 12.9 INR 1.1 D-Dimer, Quantitative < 200 Sodium 144 Potassium 3.7 Chloride 102 Carbon Dioxide 31 H Anion Gap 15 BUN 8 Creatinine 0.6 L Est GFR ( Amer) > 60 Est GFR (Non-Af Amer) > 60 Random Glucose 107 H Calcium 8.9 Total Bilirubin 0.5 AST 29 ALT 37 Alkaline Phosphatase 170 H D Troponin I < 0.0120 Total Protein 7.9 Albumin 4.1 Globulin 3.8 Albumin/Globulin Ratio 1.1 Phenytoin 01/07/19 12:15 WBC RBC Hgb Hct MCV MCH MCHC RDW Plt Count MPV Neut % (Auto) Lymph % (Auto) [place] % (Auto) Eos % (Auto) Baso % (Auto) Neut # (Auto) Lymph # (Auto) [place] # (Auto) Eos # (Auto) Baso # (Auto) PT INR D-Dimer, Quantitative Sodium Potassium Chloride Carbon Dioxide Anion Gap BUN Creatinine Est GFR ( Amer) Est GFR (Non-Af Amer) Random Glucose Calcium Total Bilirubin AST ALT Alkaline Phosphatase Troponin I Total Protein Albumin Globulin Albumin/Globulin Ratio Phenytoin 4.9 L Assessment & Plan - Assessment and Plan (Free Text) Assessment: Chest pain with ACS rule out Hypertension History of CVA History of DVT and PE Plan: Chest pain with ACS rule out Hypertension History of CVA History of DVT and PE CXR 01/07/19: stable mild cardiomegaly. No pulmonary vascular congestion, infiltrate EKG 01/07/19: NSR D-dimer: <200 Troponin: <0.0120 Will follow up troponinx2 Will follow up echocardiogram As patient has pain on palpation, no changes on EKG, and troponinx1 negative, likely costochondritis but cannot rule out ACS Will add aspirin and lipitor in light of previous history of CVA Medications: Aspirin 81 mg daily Lipitor 20 mg daily Norvasc 10 mg daily HCTZ 12.5 mg daily Cozaar 100 mg daily - Date & Time Date: 01/07/19 Time: 18:40
--- NOTE | 2019-01-07 20:25 | CARD ---
APPROVED REPORT Date of service: 01/07/2019 EXAM: Two-dimensional and M-mode echocardiogram with Doppler and color Doppler. Other Information Quality : GoodRhythm : NSR INDICATION Chest Pain 2D DIMENSIONS IVSd1.49 (0.7-1.1cm)LVDd4.48 (3.9-5.9cm) LVOT Diameter2.15 (1.8-2.4cm)PWd1.27 (0.7-1.1cm) IVSs1.45 (0.8-1.2cm)LVDs2.99 (2.5-4.0cm) FS (%) 33.3 %PWs1.54 (0.8-1.2cm) M-Mode DIMENSIONS Left Atrium (MM)3.82 (2.5-4.0cm)IVSd1.03 (0.7-1.1cm) Aortic Root2.76 (2.2-3.7cm)LVDd5.62 (4.0-5.6cm) Aortic Cusp Exc.1.85 (1.5-2.0cm)PWd1.06 (0.7-1.1cm) IVSs1.29 cmFS (%) 42 % LVDs3.26 (2.0-3.8cm)PWs1.85 cm Aortic Valve AoV Peak Xvxvyzrr147.1cm/sAoV VTI23.6cmAO Peak GR.9mmHg LVOT Peak Izwgsuiy015.3cm/sLVOT VTI21.13cmAO Mean GR.5mmHg JANICE (VMAX)1.10ne3WCH (VTI)1.56cm2 Mitral Valve MV E Oqhkkktq94.3cm/sMV DECEL [id number] A Mqsqqkgr33.6cm/s MV PWP08nyA/A ratio1.0MVA (PHT)3.28cm2 TDI Lateral E' Peak V12.87cm/sMedial E' Peak V8.31cm/sE/Lateral E'5.9 E/Medial E'9.2 LEFT VENTRICLE The left ventricle is normal size. There is mild concentric left ventricular hypertrophy. The left ventricular systolic function is normal. The estimated ejection fraction is 60-65% No regional wall motion abnormalities noted.. Transmitral Doppler flow pattern is Grade I-abnormal relaxation pattern. No left ventricle thrombus noted on this study. There is no ventricular septal defect visualized. There is no left ventricular aneurysm. There is no mass noted in the left ventricle. RIGHT VENTRICLE The right ventricle is normal size. There is normal right ventricular wall thickness. The right ventricular systolic function is normal. ATRIA The left atrium is mildly dilated. The right atrium size is normal. The interatrial septum is intact with no evidence for an atrial septal defect. AORTIC VALVE The aortic valve is normal in structure. No aortic regurgitation is present. There is no aortic valvular stenosis. There is no aortic valvular vegetation. MITRAL VALVE The mitral valve is normal in structure. There is no evidence of mitral valve prolapse. There is no mitral valve stenosis. There is trace mitral valve regurgitation noted. TRICUSPID VALVE The tricuspid valve is normal in structure. There is no tricuspid valve regurgitation noted. There is no tricuspid valve prolapse or vegetation. There is no tricuspid valve stenosis. PULMONIC VALVE The pulmonary valve is normal in structure. There is no pulmonic valvular regurgitation. There is no pulmonic valvular stenosis. GREAT VESSELS The aortic root is normal in size. The ascending aorta is normal in size. The pulmonary artery is normal. The IVC is normal in size and collapses >50% with inspiration. PERICARDIAL EFFUSION There is no pericardial effusion. There is no pleural effusion. <Conclusion> The estimated ejection fraction is 60-65% Transmitral Doppler flow pattern is Grade I-abnormal relaxation pattern. The left atrium is mildly dilated. There is trace mitral valve regurgitation noted. There is no tricuspid valve regurgitation noted.
--- NOTE | 2019-01-07 22:29 | CP.PCM.HP ---
History of Present Illness - History of Present Illness History of Present Illness: 58 y/o F, with multiple chronic medical conditions, including Seizure, Asthma, Colon Ca, GI Ulcer, TIA, DVT, PE, Peripheral edema Anxiety/Depression. [facility], to be evaluated for Chest pain in AM DOA, Pt took Tylenol with no relief. Pain was described as generalized chest pain, more prominent to mid-sternal site, intermittent, dull/pressure type, moderate intensity 5:10, radiating to R arm, symptoms [place]. Off note: Pt with multiple ER visits for CP/Seizure, last one's on 01/04/19 due to Seizure, on 01/06/19 due to R shoulder pain, DD on Tylenol, f/u with PMD. 01/07/19 AM was seen in [facility], due to CP Dx, Atypical CP, DD to f/u with her PMD. Worsening symptoms: Increased anxiety, restlessness, edema BLE, obesity BMI: 34.1 Aggravated factor: ADL's. Pt denied: fever, chills, n/v/d, urinary symptoms, headache, dizziness, palpitations, SOB, cough, sick contact, recent travel out of [place]. Echo: LVEF: 60-65%, grade 1 abnormal relaxation, L atrium mildly dilated, trace mitral valve regurgitation. CXR: No infiltrate/congestion or pleural effusion. Present on Admission - Present on Admission Any Indicators Present on Admission: Yes History of DVT/PE: Yes Review of Systems - Constitutional Constitutional: Other (Obesity BMI 34.1) - EENT Eyes: Other (negative) Ears: Other (negative) Nose/Mouth/Throat: Other (negative) - Cardiovascular Cardiovascular: Chest Pain, Pain Radiating to Arm/Neck/Jaw, Leg Edema - Respiratory Respiratory: Other (negative) - Gastrointestinal Gastrointestinal: Other (negative) - Genitourinary Genitourinary: Other (negative) - Musculoskeletal Musculoskeletal: Arthralgias, Back Pain, Radiating Pain into Limb - Integumentary Integumentary: Other (negative) - Neurological Neurological: Other (negative) - Psychiatric Psychiatric: Anxiety, Depression - Endocrine Endocrine: Other (obesity) - Hematologic/Lymphatic Hematologic: Other (negative) Past Patient History - Infectious Disease Hx of Infectious Diseases: None - Tetanus Immunizations Tetanus Immunization: Up to Date - Past Medical History & Family History Past Medical History?: Yes Pertinent Family History: Father from [place] at 36 y/o, CAD Brother and sister. - Past Social History Alcohol: None Drugs: Denies - CARDIAC Hx Cardiac Disorders: Yes Hx Congestive Heart Failure: Yes Hx Hypercholesterolemia: Yes Hx Hypertension: Yes Hx Peripheral Edema: Yes - PULMONARY Hx Respiratory Disorders: Yes Hx Asthma: Yes Hx Bronchitis: Yes Hx Pulmonary Embolism: Yes - NEUROLOGICAL Hx Neurological Disorder: Yes Hx Migraine: Yes Hx Seizures: Yes Hx Transient Ischemic Attacks (TIA): Yes - HEENT Hx HEENT Problems: No - RENAL Hx Chronic Kidney Disease: No - ENDOCRINE/METABOLIC Hx Endocrine Disorders: No - HEMATOLOGICAL/ONCOLOGICAL Hx Blood Disorders: Yes Hx Anemia: Yes Hx Cancer: Yes (Colon) Hx Human Immunodeficiency Virus (HIV): No (Pt denied.) - INTEGUMENTARY Hx Dermatological Problems: No - MUSCULOSKELETAL/RHEUMATOLOGICAL Hx Musculoskeletal Disorders: Yes Hx Arthritis: Yes Hx Back Pain: Yes Hx Herniated Disk: Yes - GASTROINTESTINAL Hx Gastrointestinal Disorders: Yes Hx Crohn's Disease: Yes Hx Gall Bladder Disease: Yes Hx Gastritis: Yes - GENITOURINARY/GYNECOLOGICAL Hx Genitourinary Disorders: No Hx Sexually Transmitted Disorders: No - PSYCHIATRIC Hx Psychophysiologic Disorder: Yes Hx Anxiety: Yes Hx Depression: Yes - SURGICAL HISTORY Hx Surgeries: Yes Hx Cholecystectomy: Yes - ANESTHESIA Hx Anesthesia: Yes Hx Anesthesia Reactions: No Hx Malignant Hyperthermia: No Meds Allergies/Adverse Reactions: Allergies Allergy/AdvReac Type Severity Reaction Status Date / Time aspirin Allergy SHORTNESS Verified 01/04/19 14:44 OF BREATH benzethonium chloride Allergy URTICARIA Verified 01/04/19 14:44 benzocaine Allergy ITCHING Verified 01/04/19 14:44 broccoli Allergy ITCHING Verified 01/04/19 14:44 caffeine Allergy ITCHING Verified 01/04/19 14:44 codeine Allergy ITCHING Verified 01/04/19 14:44 haloperidol Allergy VOMITING Verified 01/04/19 14:44 ketorolac Allergy ANAPHYLAXIS Verified 01/04/19 14:44 nitroglycerin Allergy URTICARIA Verified 01/04/19 14:44 oxycodone Allergy SHORTNESS Verified 01/04/19 14:44 OF BREATH pineapple Allergy ITCHING Verified 01/04/19 14:44 trazodone Allergy SWELLING Verified 01/04/19 14:44 ziprasidone [From Geodon] Allergy SHORTNESS Verified 01/04/19 14:44 OF BREATH lidocaine Allergy ITCHING Uncoded 01/08/19 09:18 omnipaque Allergy ANAPHYLAXIS Uncoded 01/08/19 09:19 steroids Allergy "heart Uncoded 01/04/19 14:44 flutters", swelling Physical Exam - Constitutional Appears: Agitated, Chronically Ill - Head Exam Head Exam: NORMAL INSPECTION - Eye Exam Eye Exam: PERRL - ENT Exam ENT Exam: Normal Exam - Neck Exam Neck exam: Positive for: Normal Inspection - Respiratory Exam Respiratory Exam: NORMAL BREATHING PATTERN - Cardiovascular Exam Cardiovascular Exam: REGULAR RHYTHM - GI/Abdominal Exam GI & Abdominal Exam: Normal Bowel Sounds, Soft - Extremities Exam Additional comments: 1+ non pitting edema BLE - Neurological Exam Neurological exam: Alert, CN II-XII Intact, Oriented x3, Reflexes Normal Additional comments: Obeys commands - Psychiatric Exam Psychiatric exam: Agitated, Anxious - Skin Skin Exam: Warm Results - Vital Signs Recent Vital Signs: Last Vital Signs Temp 97.6 F 01/07/19 17:28 Pulse 78 01/07/19 17:28 Resp 19 01/07/19 17:28 BP 140/83 01/07/19 17:28 Pulse Ox 98 01/07/19 17:28 reviewed Patrizia - Labs Result Diagrams: 01/08/19 18:06 01/08/19 18:06 Labs: Laboratory Results - last 24 hr 01/07/19 01/07/19 01/07/19 12:15 12:15 12:15 WBC 4.1 L RBC 3.96 Hgb 12.4 Hct 37.7 MCV 95.1 MCH 31.3 H MCHC 32.9 L RDW 13.9 Plt Count 151 MPV 8.0 Neut % (Auto) 61.9 Lymph % (Auto) 26.2 [place] % (Auto) 11.2 H Eos % (Auto) 0.5 Baso % (Auto) 0.2 Neut # (Auto) 2.5 Lymph # (Auto) 1.1 [place] # (Auto) 0.5 Eos # (Auto) 0.0 Baso # (Auto) 0.0 PT 12.9 INR 1.1 D-Dimer, Quantitative < 200 Sodium 144 Potassium 3.7 Chloride 102 Carbon Dioxide 31 H Anion Gap 15 BUN 8 Creatinine 0.6 L Est GFR ( Amer) > 60 Est GFR (Non-Af Amer) > 60 Random Glucose 107 H Calcium 8.9 Total Bilirubin 0.5 AST 29 ALT 37 Alkaline Phosphatase 170 H D Troponin I < 0.0120 Total Protein 7.9 Albumin 4.1 Globulin 3.8 Albumin/Globulin Ratio 1.1 Phenytoin 01/07/19 01/07/19 12:15 20:12 WBC RBC Hgb Hct MCV MCH MCHC RDW Plt Count MPV Neut % (Auto) Lymph % (Auto) [place] % (Auto) Eos % (Auto) Baso % (Auto) Neut # (Auto) Lymph # (Auto) [place] # (Auto) Eos # (Auto) Baso # (Auto) PT INR D-Dimer, Quantitative Sodium Potassium Chloride Carbon Dioxide Anion Gap BUN Creatinine Est GFR ( Amer) Est GFR (Non-Af Amer) Random Glucose Calcium Total Bilirubin AST ALT Alkaline Phosphatase Troponin I < 0.0120 Total Protein Albumin Globulin Albumin/Globulin Ratio Phenytoin 4.9 L reviewed J.P. - EKG Data EKG comments: reviewed J.P. - Imaging and Cardiology Chest x-ray Status: Report reviewed by me (J.P.) Echocardiogram Status: Report reviewed by me Assessment & Plan (1) Chest pain Status: Acute Priority: High (2) Hx of seizure disorder Status: Chronic Priority: Medium (3) HTN (hypertension) Status: Chronic Priority: Medium (4) History of deep vein thrombosis Status: Acute Priority: Medium (5) History of CVA (cerebrovascular accident) Status: Chronic Priority: Medium (6) Hx-TIA (transient ischemic attack) Status: Chronic Priority: Medium (7) History of pulmonary embolus (PE) Status: Acute Priority: Medium (8) Peripheral edema Status: Chronic Priority: Medium Comment: Lower extremities. (9) Anxiety Status: Chronic Priority: High - Assessment and Plan (Free Text) Plan: Pt on O2 NC, f/u Blood work-Up, MRSA Screen, Ativan, Cozaar, Norvasc, Lovenox, P henytoin, Lipitor and rest of tx. Cardiology consult appreciated, Neurology consult. Critical care time: 60 min. - Date & Time Date: 01/07/19 Time: 20:30
[2019-01-08] MEDS ORDERED: Oxycodone/Acetaminophen 5/325 mg Tab PO PRN (00:32)
[2019-01-08] MEDS: Oxycodone/Acetaminophen 5/325 mg Tab PO PRN (01:04)
[2019-01-08] MEDS: Enoxaparin 100 mg Syringe SC SCH ×3 (08:51→22:52)
[2019-01-08] MEDS ORDERED: DiphenhydrAMINE 50 mg/ml Inj IVP STA (08:58)
[2019-01-08] MEDS ORDERED: Patient's Own Med (Losartan/Hydrochlorothiazide [Losartan-Hctz 100-12.5 Mg Tab] 1 TAB) PO SCH (09:00)
--- NOTE | 2019-01-08 09:00 | CARD ---
APPROVED REPORT Date of service: 01/07/2019 EKG Measurement Heart [id number] <Conclusion> Normal sinus rhythm with sinus arrhythmia Nonspecific T wave abnormality Abnormal ECG
--- NOTE | 2019-01-08 09:01 | CARD ---
APPROVED REPORT Date of service: 01/07/2019 EKG Measurement Heart [id number] <Conclusion> Sinus rhythm with fusion complexes T wave abnormality, consider inferior ischemia Abnormal ECG
--- NOTE | 2019-01-08 09:04 | CARD ---
APPROVED REPORT Date of service: 01/07/2019 EKG Measurement Heart [id number] [id number] <Conclusion> Normal sinus rhythm Possible Left atrial enlargement T wave abnormality, consider inferior ischemia Abnormal ECG
--- NOTE | 2019-01-08 11:11 | CP.PCM.PN ---
Subjective - Date & Time of Evaluation Date of Evaluation: 01/08/19 Time of Evaluation: 11:09 - Subjective Subjective: Ziyad Sky, PGY-1, Cardiology Progress Note for Dr. Garvey Patient seen and evaluated at bedside. Patient had no acute overnight events. Patient reports reproducible chest pain but reports chest pain has improved. Patient also reports nausea and right shoulder pain today. Patient denies any other symptoms including shortness of breath, left arm pain, jaw pain , diaphoresis. Objective - Vital Signs/Intake and Output Vital Signs (last 24 hours): Temp Pulse Resp BP Pulse Ox 98.0 F 85 17 122/74 94 L 01/08/19 08:00 01/08/19 08:52 01/08/19 08:00 01/08/19 08:52 01/08/19 08:00 Intake and Output: 01/08/19 01/08/19 06:59 18:59 Intake Total 50 Output Total 0 Balance 50 - Medications Medications: Current Medications Acetaminophen (Tylenol 325mg Tab) 650 mg PO Q6 PRN PRN Reason: Pain, Mild (1-3) Amlodipine Besylate (Norvasc) 10 mg PO DAILY [facility] Last Admin: 01/08/19 08:52 Dose: 10 mg Atorvastatin Calcium (Lipitor) 20 mg PO DAILY [facility] Last Admin: 01/08/19 08:51 Dose: 20 mg Enoxaparin Sodium (Lovenox) 100 mg SC BID [facility]; Protocol Last Admin: 01/07/19 16:43 Dose: 100 mg Hydrochlorothiazide (Microzide) 12.5 mg PO DAILY [facility] Last Admin: 01/08/19 08:52 Dose: 12.5 mg Lorazepam (Ativan) 2 mg PO BID [facility] Last Admin: 01/08/19 09:11 Dose: 2 mg Losartan Potassium (Cozaar) 100 mg PO DAILY [facility] Last Admin: 01/08/19 08:50 Dose: 100 mg Oxycodone/Acetaminophen (Percocet 5/325 Mg Tab) 1 tab PO Q4 PRN PRN Reason: pain 4-7 Stop: 01/11/19 00:33 Oxycodone/Acetaminophen (Percocet 5/325 Mg Tab) 2 tab PO Q4 PRN PRN Reason: Pain 8-10 Stop: 01/11/19 00:33 Last Admin: 01/08/19 01:04 Dose: 2 tab Phenytoin Sodium (Dilantin) 100 mg PO QID [facility] Last Admin: 01/08/19 08:51 Dose: 100 mg - Labs Labs: 01/07/19 12:15 01/07/19 12:15 PT 12.9 Seconds (9.8-13.1) 01/07/19 12:15 INR 1.1 01/07/19 12:15 - Constitutional Appears: Well, Non-toxic, No Acute Distress - Head Exam Head Exam: ATRAUMATIC, NORMAL INSPECTION, NORMOCEPHALIC - Eye Exam Eye Exam: EOMI, PERRL - ENT Exam ENT Exam: Mucous Membranes Moist - Neck Exam Neck Exam: Full ROM - Respiratory Exam Respiratory Exam: Clear to Ausculation Bilateral, NORMAL BREATHING PATTERN - Cardiovascular Exam Cardiovascular Exam: REGULAR RHYTHM, RRR, +S1, +S2 - GI/Abdominal Exam GI & Abdominal Exam: Soft, Normal Bowel Sounds. absent: Tenderness - Extremities Exam Extremities Exam: Full ROM, Normal Capillary Refill, Normal Inspection - Neurological Exam Neurological Exam: Alert, Awake, CN II-XII Intact, Oriented x3 - Skin Skin Exam: Dry, Intact Assessment and Plan - Assessment and Plan (Free Text) Assessment: Chest pain with ACS rule out Hypertension History of CVA History of DVT and PE Plan: Chest pain with ACS rule out Hypertension History of CVA History of DVT and PE CXR 01/07/19: stable mild cardiomegaly. No pulmonary vascular congestion, infiltrate EKG 01/07/19: NSR D-dimer: <200 Troponinx2: <0.0120 Echocardiogram 01/07/19: LVEF 60-65%, grade I pseudonormal relaxation pattern, mild MR Will obtain nuclear stress test to evaluate for ischemia as patient has strong family history of cardiac issues. Medications: Lipitor 20 mg daily Norvasc 10 mg daily HCTZ 12.5 mg daily Cozaar 100 mg daily Lovenox 100 mg BID
--- NOTE | 2019-01-08 12:55 | CP.PCM.CON ---
History of Present Illness - History of Present Illness History of Present Illness: Neurology consult dictated. Patient is stable from neurological point of view, and there is no further neurological workup. PLan; 1. Dilantin may be given once daily at 400 mg po 2. Check levels. 3. Bone scan Follow up wt Dr. Yohannes Mchugh Neurology Past Patient History - Infectious Disease Hx of Infectious Diseases: None - Tetanus Immunizations Tetanus Immunization: Up to Date - Past Medical History & Family History Past Medical History?: Yes - Past Social History Alcohol: None Drugs: Denies - CARDIAC Hx Cardiac Disorders: Yes Hx Congestive Heart Failure: Yes Hx Hypercholesterolemia: Yes Hx Hypertension: Yes Hx Peripheral Edema: Yes - PULMONARY Hx Respiratory Disorders: Yes Hx Asthma: Yes Hx Bronchitis: Yes Hx Pulmonary Embolism: Yes - NEUROLOGICAL Hx Neurological Disorder: Yes Hx Migraine: Yes Hx Seizures: Yes Hx Transient Ischemic Attacks (TIA): Yes - HEENT Hx HEENT Problems: No - RENAL Hx Chronic Kidney Disease: No - ENDOCRINE/METABOLIC Hx Endocrine Disorders: No - HEMATOLOGICAL/ONCOLOGICAL Hx Blood Disorders: Yes Hx Anemia: Yes Hx Cancer: Yes (Colon) Hx Human Immunodeficiency Virus (HIV): Yes - INTEGUMENTARY Hx Dermatological Problems: No - MUSCULOSKELETAL/RHEUMATOLOGICAL Hx Musculoskeletal Disorders: Yes Hx Arthritis: Yes Hx Back Pain: Yes Hx Herniated Disk: Yes - GASTROINTESTINAL Hx Gastrointestinal Disorders: Yes Hx Crohn's Disease: Yes Hx Gall Bladder Disease: Yes Hx Gastritis: Yes - GENITOURINARY/GYNECOLOGICAL Hx Genitourinary Disorders: No Hx Sexually Transmitted Disorders: No - PSYCHIATRIC Hx Psychophysiologic Disorder: Yes Hx Anxiety: Yes Hx Depression: Yes - SURGICAL HISTORY Hx Surgeries: Yes Hx Cholecystectomy: Yes - ANESTHESIA Hx Anesthesia: Yes Hx Anesthesia Reactions: No Hx Malignant Hyperthermia: No Meds Allergies/Adverse Reactions: Allergies Allergy/AdvReac Type Severity Reaction Status Date / Time aspirin Allergy SHORTNESS Verified 01/04/19 14:44 OF BREATH benzethonium chloride Allergy URTICARIA Verified 01/04/19 14:44 benzocaine Allergy ITCHING Verified 01/04/19 14:44 broccoli Allergy ITCHING Verified 01/04/19 14:44 caffeine Allergy ITCHING Verified 01/04/19 14:44 codeine Allergy ITCHING Verified 01/04/19 14:44 haloperidol Allergy VOMITING Verified 01/04/19 14:44 ketorolac Allergy ANAPHYLAXIS Verified 01/04/19 14:44 nitroglycerin Allergy URTICARIA Verified 01/04/19 14:44 oxycodone Allergy SHORTNESS Verified 01/04/19 14:44 OF BREATH pineapple Allergy ITCHING Verified 01/04/19 14:44 trazodone Allergy SWELLING Verified 01/04/19 14:44 ziprasidone [From Geodon] Allergy SHORTNESS Verified 01/04/19 14:44 OF BREATH lidocaine Allergy ITCHING Uncoded 01/08/19 09:18 omnipaque Allergy ANAPHYLAXIS Uncoded 01/08/19 09:19 steroids Allergy "heart Uncoded 01/04/19 14:44 flutters", swelling - Medications Medications: Current Medications Acetaminophen (Tylenol 325mg Tab) 650 mg PO Q6 PRN PRN Reason: Pain, Mild (1-3) Amlodipine Besylate (Norvasc) 10 mg PO DAILY [facility] Last Admin: 01/08/19 08:52 Dose: 10 mg Atorvastatin Calcium (Lipitor) 20 mg PO DAILY [facility] Last Admin: 01/08/19 08:51 Dose: 20 mg Enoxaparin Sodium (Lovenox) 100 mg SC BID [facility]; Protocol Last Admin: 01/07/19 16:43 Dose: 100 mg Hydrochlorothiazide (Microzide) 12.5 mg PO DAILY [facility] Last Admin: 01/08/19 08:52 Dose: 12.5 mg Lorazepam (Ativan) 2 mg PO BID [facility] Last Admin: 01/08/19 09:11 Dose: 2 mg Losartan Potassium (Cozaar) 100 mg PO DAILY [facility] Last Admin: 01/08/19 08:50 Dose: 100 mg Oxycodone/Acetaminophen (Percocet 5/325 Mg Tab) 1 tab PO Q4 PRN PRN Reason: pain 4-7 Stop: 01/11/19 00:33 Oxycodone/Acetaminophen (Percocet 5/325 Mg Tab) 2 tab PO Q4 PRN PRN Reason: Pain 8-10 Stop: 01/11/19 00:33 Last Admin: 01/08/19 01:04 Dose: 2 tab Phenytoin Sodium (Dilantin) 100 mg PO QID [facility] Last Admin: 01/08/19 08:51 Dose: 100 mg Results - Vital Signs Recent Vital Signs: Last Vital Signs Temp 98.9 F 01/08/19 12:00 Pulse 123 H 01/08/19 12:00 Resp 100 H 01/08/19 12:00 BP 123/67 01/08/19 12:00 Pulse Ox 23 L 01/08/19 12:00 - Labs Result Diagrams: 01/07/19 12:15 01/07/19 12:15 Labs: Laboratory Results - last 24 hr 01/07/19 01/07/19 01/07/19 12:15 12:15 12:15 WBC 4.1 L RBC 3.96 Hgb 12.4 Hct 37.7 MCV 95.1 MCH 31.3 H MCHC 32.9 L RDW 13.9 Plt Count 151 MPV 8.0 Neut % (Auto) 61.9 Lymph % (Auto) 26.2 [place] % (Auto) 11.2 H Eos % (Auto) 0.5 Baso % (Auto) 0.2 Neut # (Auto) 2.5 Lymph # (Auto) 1.1 [place] # (Auto) 0.5 Eos # (Auto) 0.0 Baso # (Auto) 0.0 PT 12.9 INR 1.1 D-Dimer, Quantitative < 200 Sodium 144 Potassium 3.7 Chloride 102 Carbon Dioxide 31 H Anion Gap 15 BUN 8 Creatinine 0.6 L Est GFR ( Amer) > 60 Est GFR (Non-Af Amer) > 60 Random Glucose 107 H Calcium 8.9 Total Bilirubin 0.5 AST 29 ALT 37 Alkaline Phosphatase 170 H D Troponin I < 0.0120 Total Protein 7.9 Albumin 4.1 Globulin 3.8 Albumin/Globulin Ratio 1.1 Phenytoin 01/07/19 01/07/19 12:15 20:12 WBC RBC Hgb Hct MCV MCH MCHC RDW Plt Count MPV Neut % (Auto) Lymph % (Auto) [place] % (Auto) Eos % (Auto) Baso % (Auto) Neut # (Auto) Lymph # (Auto) [place] # (Auto) Eos # (Auto) Baso # (Auto) PT INR D-Dimer, Quantitative Sodium Potassium Chloride Carbon Dioxide Anion Gap BUN Creatinine Est GFR ( Amer) Est GFR (Non-Af Amer) Random Glucose Calcium Total Bilirubin AST ALT Alkaline Phosphatase Troponin I < 0.0120 Total Protein Albumin Globulin Albumin/Globulin Ratio Phenytoin 4.9 L
--- NOTE | 2019-01-08 14:28 | CP.PCM.PN ---
Subjective - Date & Time of Evaluation Date of Evaluation: 01/08/19 Time of Evaluation: 11:50 - Subjective Subjective: F/U CP Pt feels better today, CP improved, c/o of R shoulder pain. Objective - Vital Signs/Intake and Output Vital Signs (last 24 hours): Temp Pulse Resp BP Pulse Ox 98.9 F 97 H 19 165/82 H 99 01/08/19 12:00 01/08/19 13:25 01/08/19 13:25 01/08/19 13:25 01/08/19 13:25 Intake and Output: 01/08/19 01/08/19 06:59 18:59 Intake Total 50 240 Output Total 0 Balance 50 240 - Medications Medications: Current Medications Acetaminophen (Tylenol 325mg Tab) 650 mg PO Q6 PRN PRN Reason: Pain, Mild (1-3) Amlodipine Besylate (Norvasc) 10 mg PO DAILY [facility] Last Admin: 01/08/19 08:52 Dose: 10 mg Atorvastatin Calcium (Lipitor) 20 mg PO DAILY [facility] Last Admin: 01/08/19 08:51 Dose: 20 mg Enoxaparin Sodium (Lovenox) 100 mg SC BID [facility]; Protocol Last Admin: 01/07/19 16:43 Dose: 100 mg Hydrochlorothiazide (Microzide) 12.5 mg PO DAILY [facility] Last Admin: 01/08/19 08:52 Dose: 12.5 mg Lorazepam (Ativan) 2 mg PO BID [facility] Last Admin: 01/08/19 09:11 Dose: 2 mg Losartan Potassium (Cozaar) 100 mg PO DAILY [facility] Last Admin: 01/08/19 08:50 Dose: 100 mg Oxycodone/Acetaminophen (Percocet 5/325 Mg Tab) 1 tab PO Q4 PRN PRN Reason: pain 4-7 Stop: 01/11/19 00:33 Oxycodone/Acetaminophen (Percocet 5/325 Mg Tab) 2 tab PO Q4 PRN PRN Reason: Pain 8-10 Stop: 01/11/19 00:33 Last Admin: 01/08/19 01:04 Dose: 2 tab Phenytoin Sodium (Dilantin) 100 mg PO QID [facility] Last Admin: 01/08/19 13:45 Dose: 100 mg - Labs Labs: 01/07/19 12:15 03/19/19 12:15 PT 12.9 Seconds (9.8-13.1) 01/07/19 12:15 INR 1.1 01/07/19 12:15 - Constitutional Appears: Chronically Ill - Head Exam Head Exam: NORMAL INSPECTION - Eye Exam Eye Exam: PERRL - ENT Exam ENT Exam: Normal Exam - Neck Exam Neck Exam: Normal Inspection - Respiratory Exam Respiratory Exam: NORMAL BREATHING PATTERN - Cardiovascular Exam Cardiovascular Exam: REGULAR RHYTHM - GI/Abdominal Exam GI & Abdominal Exam: Soft, Normal Bowel Sounds - Extremities Exam Additional comments: 1+ non pitting edema BLE - Back Exam Back Exam: NORMAL INSPECTION - Neurological Exam Neurological Exam: Alert, Awake, CN II-XII Intact, Oriented x3, Reflexes Normal - Psychiatric Exam Psychiatric exam: Anxious - Skin Skin Exam: Warm Assessment and Plan (1) Chest pain Status: Acute (2) Hx of seizure disorder Status: Chronic (3) HTN (hypertension) Status: Chronic (4) History of deep vein thrombosis Status: Acute (5) History of CVA (cerebrovascular accident) Status: Chronic (6) Hx-TIA (transient ischemic attack) Status: Chronic (7) History of pulmonary embolus (PE) Status: Acute (8) Peripheral edema Status: Chronic (9) Anxiety Status: Chronic - Assessment and Plan (Free Text) Plan: Continue Percocet, Lovenox and rest of Tx, Neurology consult appreciated.
[2019-01-08 18:12] LABS: MEAN CELL VOLUME 96.4 fl (81.0-99.0); MEAN CORPUSCULAR HEMOGLOBIN 31.6 pg (27.0-31.0); MEAN CORPUSCULAR HGB CONC 32.7 g/dL (33.0-37.0); RBC 3.82 Mil/uL (3.80-5.20); RED CELL DISTRIBUTION WIDTH 14.1 % (11.5-14.5); WHITE BLOOD COUNT 4.2 K/uL (4.8-10.8)
[2019-01-08 18:35] LABS: ALB/GLOB RATIO 1.2 (1.0-2.1); ALBUMIN 3.8 g/dL (3.5-5.0); ALT/SGPT 31 U/L (9-52); AST/SGOT 28 U/L (14-36); BLOOD UREA NITROGEN 14 mg/dl (7-17); CALCIUM 8.7 mg/dL (8.4-10.2); GFR NON-AFRICAN AMERICAN > 60; HDL CHOLESTEROL 77 MG/DL (30-70)
[2019-01-08 18:58] LABS: LDL CHOLESTEROL 88 mg/dL (0-129)
[2019-01-08 19:15] LABS: T3 1.05 nmol/L (1.49-2.60)
[2019-01-09] MEDS: Oxycodone/Acetaminophen 5/325 mg Tab PO PRN ×2 (00:37→18:11)
--- NOTE | 2019-01-09 07:58 | CP.PCM.PN ---
Subjective - Date & Time of Evaluation Date of Evaluation: 01/09/19 Time of Evaluation: 07:55 - Subjective Subjective: Ziyad Sky, PGY-1, Cardiology Progress Note for Dr. Garvey Patient seen and evaluated at bedside. Patient had no acute overnight events. Patient reports reproducible chest pain but reports chest pain has improved. Patient also reports nausea and right shoulder pain today. Patient denies any other symptoms including shortness of breath, left arm pain, jaw pain , diaphoresis. Objective - Vital Signs/Intake and Output Vital Signs (last 24 hours): Temp Pulse Resp BP Pulse Ox 98.7 F 87 16 117/57 L 96 01/09/19 01:00 01/09/19 01:00 01/09/19 01:00 01/09/19 01:00 01/09/19 01:00 - Medications Medications: Current Medications Acetaminophen (Tylenol 325mg Tab) 650 mg PO Q6 PRN PRN Reason: Pain, Mild (1-3) Amlodipine Besylate (Norvasc) 10 mg PO DAILY [facility] Last Admin: 01/08/19 08:52 Dose: 10 mg Atorvastatin Calcium (Lipitor) 20 mg PO DAILY [facility] Last Admin: 01/08/19 08:51 Dose: 20 mg Enoxaparin Sodium (Lovenox) 100 mg SC BID [facility]; Protocol Last Admin: 01/08/19 22:52 Dose: 100 mg Hydrochlorothiazide (Microzide) 12.5 mg PO DAILY [facility] Last Admin: 01/08/19 08:52 Dose: 12.5 mg Lorazepam (Ativan) 2 mg PO BID [facility] Last Admin: 01/08/19 22:52 Dose: 2 mg Losartan Potassium (Cozaar) 100 mg PO DAILY [facility] Last Admin: 01/08/19 08:50 Dose: 100 mg Oxycodone/Acetaminophen (Percocet 5/325 Mg Tab) 1 tab PO Q4 PRN PRN Reason: pain 4-7 Stop: 01/11/19 00:33 Oxycodone/Acetaminophen (Percocet 5/325 Mg Tab) 2 tab PO Q4 PRN PRN Reason: Pain 8-10 Stop: 01/11/19 00:33 Last Admin: 01/09/19 00:37 Dose: 2 tab Phenytoin Sodium (Dilantin) 100 mg PO QID [facility] Last Admin: 01/08/19 22:53 Dose: 100 mg - Labs Labs: 01/08/19 18:06 01/08/19 18:06 PT 12.9 Seconds (9.8-13.1) 01/07/19 12:15 INR 1.1 01/07/19 12:15 - Constitutional Appears: Well, Non-toxic, No Acute Distress - Head Exam Head Exam: ATRAUMATIC, NORMAL INSPECTION, NORMOCEPHALIC - Eye Exam Eye Exam: EOMI, PERRL - ENT Exam ENT Exam: Mucous Membranes Moist - Neck Exam Neck Exam: Full ROM - Respiratory Exam Respiratory Exam: Clear to Ausculation Bilateral, NORMAL BREATHING PATTERN. absent: Rales, Rhonchi, Wheezes - Cardiovascular Exam Cardiovascular Exam: REGULAR RHYTHM, RRR, +S1, +S2 - GI/Abdominal Exam GI & Abdominal Exam: Soft, Normal Bowel Sounds. absent: Tenderness - Extremities Exam Extremities Exam: Full ROM - Neurological Exam Neurological Exam: Alert, Awake, CN II-XII Intact, Oriented x3 - Skin Skin Exam: Dry, Intact Assessment and Plan - Assessment and Plan (Free Text) Assessment: Chest pain with ACS rule out Hypertension History of CVA History of DVT and PE Plan: Chest pain with ACS rule out Hypertension History of CVA History of DVT and PE CXR 01/07/19: stable mild cardiomegaly. No pulmonary vascular congestion, infiltrate EKG 01/07/19: NSR Echocardiogram 01/07/19: LVEF 60-65%, grade I pseudonormal relaxation pattern, mild MR D-dimer: <200 Troponinx3: <0.0120 T Chol: 215 LDL: 88 HDL: 77 TSH: 0.68 T4: 7.03 T3: 1.05 Will obtain nuclear stress test today to evaluate for ischemia as patient has strong family history of cardiac issues. Medications: Lipitor 20 mg daily Norvasc 10 mg daily HCTZ 12.5 mg daily Cozaar 100 mg daily Lovenox 100 mg BID
[2019-01-09] MEDS ORDERED: DiphenhydrAMINE 50 mg/ml Inj IVP STA ×2 (09:41→17:51)
[2019-01-09] MEDS: Enoxaparin 100 mg Syringe SC SCH ×2 (09:52→17:39)
--- NOTE | 2019-01-09 13:12 | PQF ---
PROVIDER RESPONSE TEXT: CHF not a current condition REVIEWER QUERY TEXT: CHF Acuity and Type A hx. of Congestive Heart Failure is documented in the Medical Record. Please document the type and a cuity versus Hx. only and not a currently treated condition. Such as: Type: -- Systolic -- Diastolic -- Combined -- Other, please specify Acuity: -- Acute -- Chronic -- Acute on chronic -- Other, please specify H and P: evaluated for Chest pain in AM DOA, Pt took Tylenol with no relief. Pain was described as generalized chest pain, more prominent to mid-sternal site, intermittent, dull/ pressure type, moderate intensity 5:10, radiating to R arm. Worsening symptoms: Increased anxiety, restlessness, edema BLE, obesity BMI: 34.1 (1) Chest pain Status: Acute Priority: High (2) Hx of seizure disorder Status: Chronic Priority: Medium (3) History of deep vein thrombosis Status: Acute Priority: Medium (4) History of pulmonary embolus (PE) Status: Acute Priority: Medium (5) Anxiety Status: Chronic Priority: High (6) Hx-TIA (transient ischemic attack) Status --Hydrochlorothiazide 12.5 The patient's Clinical Indicators include: --- Query created by: Sherie Polk on 01/08/2019 12:39 PM Electronically signed by: Marc Starr MD 01/09/2019 1:10 PM
--- NOTE | 2019-01-09 15:38 | CP.PCM.PN ---
Subjective - Date & Time of Evaluation Date of Evaluation: 01/09/19 Time of Evaluation: 09:35 - Subjective Subjective: F/U CP Pt c/o of CP, at times radiating to shoulder, also c/o of skin rash after she had breakfast. Objective - Vital Signs/Intake and Output Vital Signs (last 24 hours): Temp Pulse Resp BP Pulse Ox 98.9 F 81 19 119/58 L 92 L 01/09/19 12:24 01/09/19 12:24 01/09/19 12:24 01/09/19 12:24 01/09/19 12:24 - Medications Medications: Current Medications Acetaminophen (Tylenol 325mg Tab) 650 mg PO Q6 PRN PRN Reason: Pain, Mild (1-3) Amlodipine Besylate (Norvasc) 10 mg PO DAILY [facility] Last Admin: 01/09/19 09:53 Dose: 10 mg Atorvastatin Calcium (Lipitor) 20 mg PO DAILY [facility] Last Admin: 01/09/19 09:52 Dose: 20 mg Enoxaparin Sodium (Lovenox) 100 mg SC BID [facility]; Protocol Last Admin: 01/09/19 09:52 Dose: 100 mg Hydrochlorothiazide (Microzide) 12.5 mg PO DAILY [facility] Last Admin: 01/09/19 09:53 Dose: 12.5 mg Lorazepam (Ativan) 2 mg PO BID [facility] Last Admin: 01/09/19 09:56 Dose: 2 mg Losartan Potassium (Cozaar) 100 mg PO DAILY [facility] Last Admin: 01/09/19 09:51 Dose: 100 mg Oxycodone/Acetaminophen (Percocet 5/325 Mg Tab) 1 tab PO Q4 PRN PRN Reason: pain 4-7 Stop: 01/11/19 00:33 Oxycodone/Acetaminophen (Percocet 5/325 Mg Tab) 2 tab PO Q4 PRN PRN Reason: Pain 8-10 Stop: 01/11/19 00:33 Last Admin: 01/09/19 00:37 Dose: 2 tab Phenytoin Sodium (Dilantin) 100 mg PO QID [facility] Last Admin: 01/09/19 12:59 Dose: 100 mg - Labs Labs: 01/08/19 18:06 01/08/19 18:06 PT 12.9 Seconds (9.8-13.1) 01/07/19 12:15 INR 1.1 01/07/19 12:15 - Constitutional Appears: Chronically Ill - Head Exam Head Exam: NORMAL INSPECTION - Eye Exam Eye Exam: PERRL - ENT Exam ENT Exam: Normal Exam - Neck Exam Neck Exam: Normal Inspection - Respiratory Exam Respiratory Exam: NORMAL BREATHING PATTERN - Cardiovascular Exam Cardiovascular Exam: REGULAR RHYTHM - GI/Abdominal Exam GI & Abdominal Exam: Soft, Normal Bowel Sounds - Extremities Exam Extremities Exam: Normal Inspection - Back Exam Back Exam: NORMAL INSPECTION - Neurological Exam Neurological Exam: Alert, Awake, Oriented x3, Reflexes Normal - Psychiatric Exam Psychiatric exam: Normal Mood - Skin Skin Exam: Warm Assessment and Plan (1) Chest pain Status: Acute (2) Hx of seizure disorder Status: Chronic (3) HTN (hypertension) Status: Chronic (4) History of deep vein thrombosis Status: Acute (5) History of CVA (cerebrovascular accident) Status: Chronic (6) Hx-TIA (transient ischemic attack) Status: Chronic (7) History of pulmonary embolus (PE) Status: Acute (8) Peripheral edema Status: Chronic (9) Anxiety Status: Chronic - Assessment and Plan (Free Text) Plan: Pt with difficulty for IV access yesterday in AM,, but was placed in her L arm by a nurse in the afternoon, as per nurse, Pt had a Stress Test 1 1/2 yr ago in [facility], also a Cardiac Cath and both were negative. F/U Cardiology.
[2019-01-10] MEDS ORDERED: DiphenhydrAMINE 50 mg/ml Inj IVP STA ×2 (01:07→14:28)
[2019-01-10] MEDS: Enoxaparin 100 mg Syringe SC SCH ×2 (09:59→18:10)
[2019-01-10] MEDS: Oxycodone/Acetaminophen 5/325 mg Tab PO PRN ×3 (10:01→20:08)
--- NOTE | 2019-01-10 12:20 | CP.PCM.PN ---
Subjective - Date & Time of Evaluation Date of Evaluation: 01/10/19 Time of Evaluation: 12:17 - Subjective Subjective: Ziyad Sky, PGY-1, Cardiology Progress Note for Dr. Garvey Patient seen and evaluated at bedside. Patient had no acute overnight events. Patient was unable to have nuclear stress test done due to allergy to dye. Patient reports reproducible chest pain but reports chest pain has improved. Patient also reports nausea. Patient denies any other symptoms including shortness of breath, left arm pain, jaw pain , diaphoresis. Objective - Vital Signs/Intake and Output Vital Signs (last 24 hours): Temp Pulse Resp BP Pulse Ox 97.3 F L 68 20 122/77 93 L 01/10/19 08:17 01/10/19 10:00 01/10/19 08:17 01/10/19 10:00 01/10/19 08:17 - Medications Medications: Current Medications Acetaminophen (Tylenol 325mg Tab) 650 mg PO Q6 PRN PRN Reason: Pain, Mild (1-3) Amlodipine Besylate (Norvasc) 10 mg PO DAILY [facility] Last Admin: 01/10/19 09:59 Dose: 10 mg Atorvastatin Calcium (Lipitor) 20 mg PO DAILY [facility] Last Admin: 01/10/19 09:59 Dose: 20 mg Enoxaparin Sodium (Lovenox) 100 mg SC BID [facility]; Protocol Last Admin: 01/10/19 09:59 Dose: 100 mg Hydrochlorothiazide (Microzide) 12.5 mg PO DAILY [facility] Last Admin: 01/10/19 09:59 Dose: 12.5 mg Lorazepam (Ativan) 2 mg PO BID [facility] Last Admin: 01/10/19 10:00 Dose: 2 mg Losartan Potassium (Cozaar) 100 mg PO DAILY [facility] Last Admin: 01/10/19 10:00 Dose: 100 mg Oxycodone/Acetaminophen (Percocet 5/325 Mg Tab) 1 tab PO Q4 PRN PRN Reason: pain 4-7 Stop: 01/11/19 00:33 Oxycodone/Acetaminophen (Percocet 5/325 Mg Tab) 2 tab PO Q4 PRN PRN Reason: Pain 8-10 Stop: 01/11/19 00:33 Last Admin: 01/10/19 10:01 Dose: 2 tab Phenytoin Sodium (Dilantin) 100 mg PO QID [facility] Last Admin: 01/10/19 10:00 Dose: 100 mg - Labs Labs: 01/08/19 18:06 01/08/19 18:06 PT 12.9 Seconds (9.8-13.1) 01/07/19 12:15 INR 1.1 01/07/19 12:15 - Constitutional Appears: Well, Non-toxic, No Acute Distress - Head Exam Head Exam: ATRAUMATIC, NORMAL INSPECTION, NORMOCEPHALIC - Eye Exam Eye Exam: EOMI, PERRL - ENT Exam ENT Exam: Mucous Membranes Moist - Neck Exam Neck Exam: Full ROM - Respiratory Exam Respiratory Exam: Clear to Ausculation Bilateral, NORMAL BREATHING PATTERN - Cardiovascular Exam Cardiovascular Exam: REGULAR RHYTHM, RRR, +S1, +S2 - GI/Abdominal Exam GI & Abdominal Exam: Soft, Normal Bowel Sounds. absent: Tenderness - Extremities Exam Extremities Exam: Full ROM - Neurological Exam Neurological Exam: Alert, Awake, CN II-XII Intact, Oriented x3 - Skin Skin Exam: Dry, Intact Assessment and Plan - Assessment and Plan (Free Text) Assessment: Chest pain with ACS rule out Hypertension History of CVA History of DVT and PE Plan: Chest pain with ACS rule out Hypertension History of CVA History of DVT and PE CXR 01/07/19: stable mild cardiomegaly. No pulmonary vascular congestion, infiltrate EKG 01/07/19: NSR Echocardiogram 01/07/19: LVEF 60-65%, grade I pseudonormal relaxation pattern, mild MR D-dimer: <200 Troponinx3: <0.0120 T Chol: 215 LDL: 88 HDL: 77 TSH: 0.68 T4: 7.03 T3: 1.05 Patient can be discharged today from cardiac standpoint and should follow up with Dr. Garvey outpatient within one week for further workup and stress test. Medications: Lipitor 20 mg daily Norvasc 10 mg daily HCTZ 12.5 mg daily Cozaar 100 mg daily Lovenox 100 mg BID
--- NOTE | 2019-01-10 14:05 | PQF ---
PROVIDER RESPONSE TEXT: Acute DVT LLE. REVIEWER QUERY TEXT: Conflicting Documentation Clarification 2 (two) queries: 1. History of DVT versus a current DVT? 2. If a current dx.: Acute versus Chronic -- Other, please specify D-Dimer: <200 Draft H and P: includes a:History of deep vein thrombosis Status: Acute Priority: Medium History of pulmonary embolus (PE) Status: Acute Priority: Medium ISigned Cardiology consult: clot in her leg currently Assessment: Chest pain with ACS rule out HTN, Hx.of CVA DVT and PE -lovenox SC BID The patient's Clinical Indicators include: --- Query created by: Sherie Polk on 01/08/2019 12:49 PM Electronically signed by: Marc Starr MD 01/10/2019 2:03 PM
--- NOTE | 2019-01-10 14:05 | PQF ---
PROVIDER RESPONSE TEXT: Patient denies HIV. REVIEWER QUERY TEXT: HIV Clarification and Associated Conditions HIV (Human immunodeficiency virus) is documented in the medical record. Please specify the type Such as: -- Symptomatic -- Asymptomatic -- Other, please specify Also please include any associated conditions, if applicable. H and P includes: a Hx. of HIV The patient's Clinical Indicators include: --- Query created by: Sherie Polk on 01/08/2019 12:20 PM Electronically signed by: Marc Starr MD 01/10/2019 2:03 PM
--- NOTE | 2019-01-10 14:05 | PQF ---
PROVIDER RESPONSE TEXT: Chest pain secondary to costochondritis, cardiac etiology to be determined pending further workup as outpatient by material attendant sr technical sales consultant. REVIEWER QUERY TEXT: Clarification of Clinical Diagnostic Findings Please clarify the etiology of the Chest Pain if known after the work up is completed Or: Unable to determine H and P includes: evaluated for Chest pain in AM DOA, Pt took Tylenol with no relief. Pain was described as generalized chest pain, more prominent to mid-sternal site, intermittent, dull/ pressure type, moderate intensity 5:10, radiating to R arm, Worsening symptoms: Increased anxiety, restlessness, edema BLE, obesity BMI: 34.1 (1) Chest pain Status: Acute Priority: High (2) Hx of seizure disorder Status: Chronic Priority: Medium (3) History of deep vein thrombosis Status: Acute Priority: Medium (4) History of pulmonary embolus (PE) Status: Acute Priority: Medium (5) Anxiety Status: Chronic Priority: High (6) Hx-TIA (transient ischemic attack) Status: Acute ISigned Cardiology consult: Assessment includes: Chest pain with ACS rule out 01/08 Cardiology progress note ISigned: As patient has pain on palpation, no changes on EKG, and tropo ninx2 negative, likely costochondritis The patient's Clinical Indicators include: ---- Query created by: Sherie Polk on 01/08/2019 12:26 PM Electronically signed by: Marc Starr MD 01/10/2019 2:03 PM
--- NOTE | 2019-01-10 14:21 | CP.PCM.DIS ---
Provider - Provider Date of Admission: 01/07/19 16:19 Attending physician: Marc Starr MD Consults: 01/07/19 15:24 Cardiology Consult Stat Comment: Consulting Provider: Emory Garvey Consulting Physician: Emory Garvey Reason for Consult: chest pain 01/07/19 15:25 Neurology Consult Stat Comment: Consulting Provider: Alberto Mchugh Consulting Physician: Alberto Mchugh Reason for Consult: weakness, syncope Diagnosis - Discharge Diagnosis (1) Chest pain Status: Acute Priority: High (2) Hx of seizure disorder Status: Chronic Priority: Medium (3) HTN (hypertension) Status: Chronic Priority: Medium (4) History of deep vein thrombosis Status: Acute Priority: Medium (5) History of CVA (cerebrovascular accident) Status: Chronic Priority: Medium (6) Hx-TIA (transient ischemic attack) Status: Chronic Priority: Medium (7) History of pulmonary embolus (PE) Status: Acute Priority: Medium (8) Peripheral edema Status: Chronic Priority: Medium (9) Anxiety Status: Chronic Priority: High Hospital Course - Lab Results Lab Results: Micro Results 01/07/19 20:40 Naris MRSA Culture (Admit) - Final MRSA NOT DETECTED Most Recent Lab Values WBC 4.2 K/uL (4.8-10.8) L 01/08/19 18:06 RBC 3.82 Mil/uL (3.80-5.20) 01/08/19 18:06 Hgb 12.0 g/dL (12.0-16.0) 01/08/19 18:06 Hct 36.8 % (34.0-47.0) 01/08/19 18:06 MCV 96.4 fl (81.0-99.0) 01/08/19 18:06 MCH 31.6 pg (27.0-31.0) H 01/08/19 18:06 MCHC 32.7 g/dL (33.0-37.0) L 01/08/19 18:06 RDW 14.1 % (11.5-14.5) 01/08/19 18:06 Plt Count 139 K/uL (130-400) 01/08/19 18:06 MPV 8.0 fl (7.2-11.7) 01/07/19 12:15 Neut % (Auto) 61.9 % (50.0-75.0) 01/07/19 12:15 Lymph % (Auto) 26.2 % (20.0-40.0) 01/07/19 12:15 [place] % (Auto) 11.2 % (0.0-10.0) H 01/07/19 12:15 Eos % (Auto) 0.5 % (0.0-4.0) 01/07/19 12:15 Baso % (Auto) 0.2 % (0.0-2.0) 01/07/19 12:15 Neut # (Auto) 2.5 K/uL (1.8-7.0) 01/07/19 12:15 Lymph # (Auto) 1.1 K/uL (1.0-4.3) 01/07/19 12:15 [place] # (Auto) 0.5 K/uL (0.0-0.8) 01/07/19 12:15 Eos # (Auto) 0.0 K/uL (0.0-0.7) 01/07/19 12:15 Baso # (Auto) 0.0 K/uL (0.0-0.2) 01/07/19 12:15 PT 12.9 Seconds (9.8-13.1) 01/07/19 12:15 INR 1.1 01/07/19 12:15 D-Dimer, Quantitative < 200 ng/mlDDU (0-230) 01/07/19 12:15 Sodium 140 mmol/l (132-148) 01/08/19 18:06 Potassium 3.7 MMOL/L (3.6-5.0) 01/08/19 18:06 Chloride 105 mmol/L (98-107) 01/08/19 18:06 Carbon Dioxide 29 mmol/L (22-30) 01/08/19 18:06 Anion Gap 10 (10-20) 01/08/19 18:06 BUN 14 mg/dl (7-17) 01/08/19 18:06 Creatinine 0.8 mg/dl (0.7-1.2) 01/08/19 18:06 Est GFR ( Amer) > 60 01/08/19 18:06 Est GFR (Non-Af Amer) > 60 01/08/19 18:06 Random Glucose 74 mg/dL (65-105) 01/08/19 18:06 Calcium 8.7 mg/dL (8.4-10.2) 01/08/19 18:06 Total Bilirubin 0.3 mg/dl (0.2-1.3) 01/08/19 18:06 AST 28 U/L (14-36) 01/08/19 18:06 ALT 31 U/L (9-52) 01/08/19 18:06 Alkaline Phosphatase 133 U/L (38-126) H D 01/08/19 18:06 Troponin I < 0.0120 ng/mL (0.00-0.120) 01/08/19 20:00 Total Protein 7.0 G/DL (6.3-8.2) 01/08/19 18:06 Albumin 3.8 g/dL (3.5-5.0) 01/08/19 18:06 Globulin 3.3 gm/dL (2.2-3.9) 01/08/19 18:06 Albumin/Globulin Ratio 1.2 (1.0-2.1) 01/08/19 18:06 Triglycerides 64 mg/DL (0-149) 01/08/19 18:06 Cholesterol 215 mg/dL (0-199) H 01/08/19 18:06 LDL Cholesterol Direct 88 mg/dL (0-129) 01/08/19 18:06 HDL Cholesterol 77 MG/DL (30-70) H 01/08/19 18:06 Thyroxine (T4) 7.03 ug/dl (5.5-11.0) 01/08/19 18:06 Total T3 1.05 nmol/L (1.49-2.60) L 01/08/19 18:06 TSH 3rd Generation 0.68 mIU/ML (0.46-4.68) 01/08/19 18:06 Phenytoin 4.9 ug/ML (10-20) L 01/07/19 12:15 Discharge Exam - Head Exam Head Exam: ATRAUMATIC, NORMAL INSPECTION, NORMOCEPHALIC Discharge Plan - Follow Up Plan Condition: FAIR Disposition: HOME/ ROUTINE
[2019-01-11] MEDS: Enoxaparin 100 mg Syringe SC SCH ×2 (08:36→16:32)
[2019-01-11] MEDS ORDERED: Oxycodone/Acetaminophen 5/325 mg Tab PO PRN (09:05)
[2019-01-11] MEDS: Oxycodone/Acetaminophen 5/325 mg Tab PO PRN ×3 (09:28→21:54)
--- NOTE | 2019-01-11 11:14 | CP.PCM.PN ---
Subjective - Date & Time of Evaluation Date of Evaluation: 01/10/19 - Subjective Subjective: This note is for 01-10-19, Pt was seen by me at 13:30. After discharged yesterday, I was called by the nurse, Pt developed CP and discharge was cancelled. Pt c/o of chest pain in the chest wall. Objective - Vital Signs/Intake and Output Vital Signs (last 24 hours): Temp Pulse Resp BP Pulse Ox 98 F 102 H 20 105/70 98 01/11/19 08:37 01/11/19 08:37 01/11/19 08:37 01/11/19 08:37 01/11/19 08:37 - Medications Medications: Current Medications Acetaminophen (Tylenol 325mg Tab) 650 mg PO Q6 PRN PRN Reason: Pain, Mild (1-3) Amlodipine Besylate (Norvasc) 10 mg PO DAILY [facility] Last Admin: 01/11/19 08:36 Dose: 10 mg Atorvastatin Calcium (Lipitor) 20 mg PO DAILY [facility] Last Admin: 01/11/19 08:36 Dose: 20 mg Enoxaparin Sodium (Lovenox) 100 mg SC BID [facility]; Protocol Last Admin: 01/11/19 08:36 Dose: 100 mg Hydrochlorothiazide (Microzide) 12.5 mg PO DAILY [facility] Last Admin: 01/11/19 08:37 Dose: 12.5 mg Lorazepam (Ativan) 2 mg PO BID [facility] Last Admin: 01/11/19 08:32 Dose: 2 mg Losartan Potassium (Cozaar) 100 mg PO DAILY [facility] Last Admin: 01/11/19 08:36 Dose: 100 mg Nystatin (Nystop Topical Powder) 1 applic TOP TID [facility] Last Admin: 01/11/19 10:25 Dose: 1 applic Oxycodone/Acetaminophen (Percocet 5/325 Mg Tab) 2 tab PO Q4 PRN PRN Reason: Pain, severe (8-10) Stop: 01/14/19 09:05 Last Admin: 01/11/19 09:28 Dose: 2 tab Oxycodone/Acetaminophen (Percocet 5/325 Mg Tab) 1 tab PO Q4 PRN PRN Reason: Pain, moderate (4-7) Stop: 01/14/19 09:06 Phenytoin Sodium (Dilantin) 100 mg PO QID [facility] Last Admin: 01/11/19 08:35 Dose: 100 mg - Labs Labs: 01/08/19 18:06 01/08/19 18:06 PT 12.9 Seconds (9.8-13.1) 01/07/19 12:15 INR 1.1 01/07/19 12:15 - Constitutional Appears: Chronically Ill - Head Exam Head Exam: NORMAL INSPECTION - Eye Exam Eye Exam: PERRL - ENT Exam ENT Exam: Normal Exam - Neck Exam Neck Exam: Normal Inspection - Respiratory Exam Respiratory Exam: NORMAL BREATHING PATTERN - Cardiovascular Exam Cardiovascular Exam: REGULAR RHYTHM Additional comments: Tenderness R-L LSB - GI/Abdominal Exam GI & Abdominal Exam: Soft, Normal Bowel Sounds - Extremities Exam Extremities Exam: Tenderness (R shoulder) - Back Exam Back Exam: NORMAL INSPECTION - Neurological Exam Neurological Exam: Alert, Awake, Oriented x3, Reflexes Normal - Psychiatric Exam Psychiatric exam: Normal Mood - Skin Skin Exam: Warm Assessment and Plan (1) Chest pain Status: Acute (2) Hx of seizure disorder Status: Chronic (3) HTN (hypertension) Status: Chronic (4) History of deep vein thrombosis Status: Acute (5) History of CVA (cerebrovascular accident) Status: Chronic (6) Hx-TIA (transient ischemic attack) Status: Chronic (7) History of pulmonary embolus (PE) Status: Acute (8) Peripheral edema Status: Chronic (9) Anxiety Status: Chronic - Assessment and Plan (Free Text) Plan: STT cancelled yesterday, f/u Cardiology.
--- NOTE | 2019-01-11 14:35 | CP.PCM.PN ---
Subjective - Date & Time of Evaluation Date of Evaluation: 01/11/19 Time of Evaluation: 12:10 - Subjective Subjective: F/U CP c/o of rash in the anterior chest with skin itching, no CP today. Objective - Vital Signs/Intake and Output Vital Signs (last 24 hours): Temp Pulse Resp BP Pulse Ox 98 F 102 H 20 105/70 98 01/11/19 08:37 01/11/19 08:37 01/11/19 08:37 01/11/19 08:37 01/11/19 08:37 - Medications Medications: Current Medications Acetaminophen (Tylenol 325mg Tab) 650 mg PO Q6 PRN PRN Reason: Pain, Mild (1-3) Amlodipine Besylate (Norvasc) 10 mg PO DAILY [facility] Last Admin: 01/11/19 08:36 Dose: 10 mg Atorvastatin Calcium (Lipitor) 20 mg PO DAILY [facility] Last Admin: 01/11/19 08:36 Dose: 20 mg Enoxaparin Sodium (Lovenox) 100 mg SC BID [facility]; Protocol Last Admin: 01/11/19 08:36 Dose: 100 mg Hydrochlorothiazide (Microzide) 12.5 mg PO DAILY [facility] Last Admin: 01/11/19 08:37 Dose: 12.5 mg Lorazepam (Ativan) 2 mg PO BID [facility] Last Admin: 01/11/19 08:32 Dose: 2 mg Losartan Potassium (Cozaar) 100 mg PO DAILY [facility] Last Admin: 01/11/19 08:36 Dose: 100 mg Nystatin (Nystop Topical Powder) 1 applic TOP TID [facility] Last Admin: 01/11/19 12:19 Dose: 1 applic Oxycodone/Acetaminophen (Percocet 5/325 Mg Tab) 2 tab PO Q4 PRN PRN Reason: Pain, severe (8-10) Stop: 01/14/19 09:05 Last Admin: 01/11/19 09:28 Dose: 2 tab Oxycodone/Acetaminophen (Percocet 5/325 Mg Tab) 1 tab PO Q4 PRN PRN Reason: Pain, moderate (4-7) Stop: 01/14/19 09:06 Phenytoin Sodium (Dilantin) 100 mg PO QID [facility] Last Admin: 01/11/19 12:18 Dose: 100 mg - Labs Labs: 01/08/19 18:06 01/08/19 18:06 PT 12.9 Seconds (9.8-13.1) 01/07/19 12:15 INR 1.1 01/07/19 12:15 - Constitutional Appears: No Acute Distress - Head Exam Head Exam: NORMAL INSPECTION - Eye Exam Eye Exam: PERRL - ENT Exam ENT Exam: Normal Exam - Neck Exam Neck Exam: Normal Inspection - Respiratory Exam Respiratory Exam: NORMAL BREATHING PATTERN - Cardiovascular Exam Cardiovascular Exam: REGULAR RHYTHM Additional comments: Tenderness R-L LSB - GI/Abdominal Exam GI & Abdominal Exam: Soft, Normal Bowel Sounds - Extremities Exam Extremities Exam: Tenderness (R shoulder) - Back Exam Back Exam: NORMAL INSPECTION - Neurological Exam Neurological Exam: Alert, Oriented x3, Reflexes Normal Additional comments: Follows simple commands - Psychiatric Exam Psychiatric exam: Normal Mood - Skin Skin Exam: Rash (mild upper chest.), Warm Assessment and Plan (1) Chest pain Status: Acute (2) Hx of seizure disorder Status: Chronic (3) HTN (hypertension) Status: Chronic (4) History of deep vein thrombosis Status: Acute (5) History of CVA (cerebrovascular accident) Status: Chronic (6) Hx-TIA (transient ischemic attack) Status: Chronic (7) History of pulmonary embolus (PE) Status: Acute (8) Peripheral edema Status: Chronic (9) Anxiety Status: Chronic - Assessment and Plan (Free Text) Plan: Continue Cozaar, Microzide, Norvasc and rest of Tx. procurement consultant will f/u with Pt due to CP last night.
[2019-01-11] MEDS ORDERED: DiphenhydrAMINE 50 mg/ml Inj IVP STA (23:22)
[2019-01-12] MEDS: Enoxaparin 100 mg Syringe SC SCH ×2 (09:00→18:44)
[2019-01-12] MEDS: Oxycodone/Acetaminophen 5/325 mg Tab PO PRN ×2 (14:33→19:34)
--- NOTE | 2019-01-12 23:24 | CP.PCM.PN ---
Subjective - Subjective Subjective: no Chest pain today, no SOB, no SHABAZZ Objective - Vital Signs/Intake and Output Vital Signs (last 24 hours): Temp Pulse Resp BP Pulse Ox 98.3 F 86 20 100/65 98 01/12/19 17:23 01/12/19 17:23 01/12/19 17:23 01/12/19 17:23 01/12/19 17:23 - Medications Medications: Current Medications Acetaminophen (Tylenol 325mg Tab) 650 mg PO Q6 PRN PRN Reason: Pain, Mild (1-3) Amlodipine Besylate (Norvasc) 10 mg PO DAILY [facility] Last Admin: 01/12/19 09:01 Dose: 10 mg Atorvastatin Calcium (Lipitor) 20 mg PO DAILY [facility] Last Admin: 01/12/19 09:00 Dose: 20 mg Enoxaparin Sodium (Lovenox) 100 mg SC BID [facility]; Protocol Last Admin: 01/12/19 18:44 Dose: 100 mg Hydrochlorothiazide (Microzide) 12.5 mg PO DAILY [facility] Last Admin: 01/12/19 09:01 Dose: 12.5 mg Lorazepam (Ativan) 2 mg PO BID [facility] Last Admin: 01/12/19 18:44 Dose: 2 mg Losartan Potassium (Cozaar) 100 mg PO DAILY [facility] Last Admin: 01/12/19 08:59 Dose: 100 mg Nystatin (Nystop Topical Powder) 1 applic TOP TID [facility] Last Admin: 01/12/19 18:45 Dose: 1 applic Oxycodone/Acetaminophen (Percocet 5/325 Mg Tab) 2 tab PO Q4 PRN PRN Reason: Pain, severe (8-10) Stop: 01/14/19 09:05 Last Admin: 01/12/19 19:34 Dose: 2 tab Oxycodone/Acetaminophen (Percocet 5/325 Mg Tab) 1 tab PO Q4 PRN PRN Reason: Pain, moderate (4-7) Stop: 01/14/19 09:06 Last Admin: 01/12/19 09:11 Dose: 1 tab Phenytoin Sodium (Dilantin) 100 mg PO QID [facility] Last Admin: 01/12/19 22:05 Dose: 100 mg - Labs Labs: 01/08/19 18:06 01/08/19 18:06 PT 12.9 Seconds (9.8-13.1) 01/07/19 12:15 INR 1.1 01/07/19 12:15 - Constitutional Appears: No Acute Distress - Head Exam Head Exam: NORMAL INSPECTION - Eye Exam Eye Exam: PERRL - ENT Exam ENT Exam: Normal Exam - Neck Exam Neck Exam: Normal Inspection - Respiratory Exam Respiratory Exam: Clear to Ausculation Bilateral - Cardiovascular Exam Cardiovascular Exam: REGULAR RHYTHM Additional comments: tenderness LSB and RSB - Extremities Exam Extremities Exam: Tenderness (R shoulder) - Back Exam Back Exam: NORMAL INSPECTION - Neurological Exam Neurological Exam: Oriented x3. absent: CN II-XII Intact, Motor Sensory Deficit - Psychiatric Exam Psychiatric exam: Normal Affect - Skin Skin Exam: Warm Assessment and Plan (1) Chest pain Status: Acute (2) Hx of seizure disorder Status: Chronic (3) HTN (hypertension) Status: Chronic (4) History of deep vein thrombosis Status: Acute (5) History of CVA (cerebrovascular accident) Status: Chronic (6) Hx-TIA (transient ischemic attack) Status: Chronic (7) History of pulmonary embolus (PE) Status: Acute (8) Peripheral edema Status: Chronic (9) Anxiety Status: Chronic (10) Hx of seizure disorder Status: Chronic - Assessment and Plan (Free Text) Plan: f/u Cardiology, continue Lovenox, Coozar, Norvasc, Dilantin, Lipitor and rest of Tx
[2019-01-12 23:52] VITALS: TEMP 97.7
[2019-01-13 06:52] LABS: HEMOGLOBIN 12.9 g/dL (12.0-16.0); MEAN CELL VOLUME 95.2 fl (81.0-99.0); MEAN CORPUSCULAR HEMOGLOBIN 31.8 pg (27.0-31.0); MEAN CORPUSCULAR HGB CONC 33.4 g/dL (33.0-37.0); RBC 4.08 Mil/uL (3.80-5.20); RED CELL DISTRIBUTION WIDTH 14.2 % (11.5-14.5); WHITE BLOOD COUNT 5.3 K/uL (4.8-10.8)
[2019-01-13 07:02] LABS: BLOOD UREA NITROGEN 26 mg/dl (7-17); CALCIUM 8.7 mg/dL (8.4-10.2); GFR NON-AFRICAN AMERICAN > 60
[2019-01-13 08:36] VITALS: BP 123/70; PULSE 84; RESP 20; O2SAT 98
[2019-01-13] MEDS: Enoxaparin 100 mg Syringe SC SCH (10:45)
[2019-01-13] MEDS: Oxycodone/Acetaminophen 5/325 mg Tab PO PRN (10:56)
--- NOTE | 2019-01-13 15:30 | CP.PCM.PN ---
Subjective - Date & Time of Evaluation Date of Evaluation: 01/13/19 Time of Evaluation: 12:00 - Subjective Subjective: F/U CP. No CP, no SOB, Pt wants to sing AMA. Objective - Vital Signs/Intake and Output Vital Signs (last 24 hours): Temp Pulse Resp BP Pulse Ox 97.7 F 84 20 123/70 98 01/13/19 09:00 01/13/19 10:46 01/13/19 09:00 01/13/19 10:46 01/13/19 09:00 - Medications Medications: Current Medications Acetaminophen (Tylenol 325mg Tab) 650 mg PO Q6 PRN PRN Reason: Pain, Mild (1-3) Amlodipine Besylate (Norvasc) 10 mg PO DAILY [facility] Last Admin: 01/13/19 10:46 Dose: 10 mg Atorvastatin Calcium (Lipitor) 20 mg PO DAILY [facility] Last Admin: 01/13/19 10:43 Dose: 20 mg Enoxaparin Sodium (Lovenox) 100 mg SC BID [facility]; Protocol Last Admin: 01/13/19 10:45 Dose: 100 mg Hydrochlorothiazide (Microzide) 12.5 mg PO DAILY [facility] Last Admin: 01/13/19 10:45 Dose: 12.5 mg Lorazepam (Ativan) 2 mg PO BID [facility] Last Admin: 01/13/19 10:55 Dose: 2 mg Losartan Potassium (Cozaar) 100 mg PO DAILY [facility] Last Admin: 01/13/19 10:43 Dose: 100 mg Nystatin (Nystop Topical Powder) 1 applic TOP TID [facility] Last Admin: 01/13/19 13:53 Dose: 1 applic Oxycodone/Acetaminophen (Percocet 5/325 Mg Tab) 2 tab PO Q4 PRN PRN Reason: Pain, severe (8-10) Stop: 01/14/19 09:05 Last Admin: 01/13/19 10:56 Dose: 2 tab Oxycodone/Acetaminophen (Percocet 5/325 Mg Tab) 1 tab PO Q4 PRN PRN Reason: Pain, moderate (4-7) Stop: 01/14/19 09:06 Last Admin: 01/12/19 09:11 Dose: 1 tab Phenytoin Sodium (Dilantin) 100 mg PO QID [facility] Last Admin: 01/13/19 13:53 Dose: 100 mg - Labs Labs: 01/13/19 06:38 01/13/19 06:38 PT 12.9 Seconds (9.8-13.1) 01/07/19 12:15 INR 1.1 01/07/19 12:15 - Constitutional Appears: No Acute Distress - Head Exam Head Exam: NORMAL INSPECTION - Eye Exam Eye Exam: PERRL - ENT Exam ENT Exam: Normal Exam - Neck Exam Neck Exam: Normal Inspection - Respiratory Exam Respiratory Exam: NORMAL BREATHING PATTERN - Cardiovascular Exam Cardiovascular Exam: REGULAR RHYTHM Additional comments: Tenderness R-L LSB - GI/Abdominal Exam GI & Abdominal Exam: Soft, Normal Bowel Sounds - Extremities Exam Extremities Exam: Tenderness (R shoulder) - Back Exam Back Exam: NORMAL INSPECTION - Neurological Exam Neurological Exam: Alert, Awake, Oriented x3 Additional comments: Follows simple commands. - Psychiatric Exam Psychiatric exam: Normal Mood - Skin Skin Exam: Warm Assessment and Plan (1) Chest pain Status: Acute (2) Hx of seizure disorder Status: Chronic (3) HTN (hypertension) Status: Chronic (4) History of deep vein thrombosis Status: Acute (5) History of CVA (cerebrovascular accident) Status: Chronic (6) Hx-TIA (transient ischemic attack) Status: Chronic (7) History of pulmonary embolus (PE) Status: Acute (8) Peripheral edema Status: Chronic (9) Anxiety Status: Chronic (10) Hx of seizure disorder Status: Chronic - Assessment and Plan (Free Text) Plan: Pt refused Stress Test, discussed with her but insist to sign AMA.
--- NOTE | 2019-01-14 10:16 | CP.PCM.DIS ---
Provider - Provider Date of Admission: 01/07/19 16:19 Pt left hospital on 01/13/19, signed AMA. Attending physician: Marc Starr MD Consults: 01/07/19 15:24 Cardiology Consult Stat Comment: Consulting Provider: Emory Garvey Consulting Physician: Emory Garvey Reason for Consult: chest pain 01/07/19 15:25 Neurology Consult Stat Comment: Consulting Provider: Alberto Mchugh Consulting Physician: Alberto Mchugh Reason for Consult: weakness, syncope Diagnosis - Discharge Diagnosis (1) Chest pain Status: Acute Priority: High (2) Hx of seizure disorder Status: Chronic Priority: Medium (3) HTN (hypertension) Status: Chronic Priority: Medium (4) History of deep vein thrombosis Status: Acute Priority: Medium (5) History of CVA (cerebrovascular accident) Status: Chronic Priority: Medium (6) Hx-TIA (transient ischemic attack) Status: Chronic Priority: Medium (7) History of pulmonary embolus (PE) Status: Acute Priority: Medium (8) Peripheral edema Status: Chronic Priority: Medium (9) Anxiety Status: Chronic Priority: High Hospital Course - Lab Results Lab Results: Micro Results 01/09/19 21:55 Naris MRSA Culture (Admit) - Final MRSA NOT DETECTED 01/07/19 20:40 [facility] MRSA Culture (Admit) - Final MRSA NOT DETECTED Most Recent Lab Values WBC 5.3 K/uL (4.8-10.8) 01/13/19 06:38 RBC 4.08 Mil/uL (3.80-5.20) 01/13/19 06:38 Hgb 12.9 g/dL (12.0-16.0) 01/13/19 06:38 Hct 38.8 % (34.0-47.0) 01/13/19 06:38 MCV 95.2 fl (81.0-99.0) 01/13/19 06:38 MCH 31.8 pg (27.0-31.0) H 01/13/19 06:38 MCHC 33.4 g/dL (33.0-37.0) 01/13/19 06:38 RDW 14.2 % (11.5-14.5) 01/13/19 06:38 Plt Count 133 K/uL (130-400) 01/13/19 06:38 MPV 8.0 fl (7.2-11.7) 01/07/19 12:15 Neut % (Auto) 61.9 % (50.0-75.0) 01/07/19 12:15 Lymph % (Auto) 26.2 % (20.0-40.0) 01/07/19 12:15 Braxton % (Auto) 11.2 % (0.0-10.0) H 01/07/19 12:15 Eos % (Auto) 0.5 % (0.0-4.0) 01/07/19 12:15 Baso % (Auto) 0.2 % (0.0-2.0) 01/07/19 12:15 Neut # (Auto) 2.5 K/uL (1.8-7.0) 01/07/19 12:15 Lymph # (Auto) 1.1 K/uL (1.0-4.3) 01/07/19 12:15 Braxton # (Auto) 0.5 K/uL (0.0-0.8) 01/07/19 12:15 Eos # (Auto) 0.0 K/uL (0.0-0.7) 01/07/19 12:15 Baso # (Auto) 0.0 K/uL (0.0-0.2) 01/07/19 12:15 PT 12.9 Seconds (9.8-13.1) 01/07/19 12:15 INR 1.1 01/07/19 12:15 D-Dimer, Quantitative < 200 ng/mlDDU (0-230) 01/07/19 12:15 Sodium 137 mmol/l (132-148) 01/13/19 06:38 Potassium 3.7 MMOL/L (3.6-5.0) 01/13/19 06:38 Chloride 100 mmol/L (98-107) 01/13/19 06:38 Carbon Dioxide 28 mmol/L (22-30) 01/13/19 06:38 Anion Gap 13 (10-20) 01/13/19 06:38 BUN 26 mg/dl (7-17) H 01/13/19 06:38 Creatinine 0.8 mg/dl (0.7-1.2) 01/13/19 06:38 Est GFR ( Amer) > 60 01/13/19 06:38 Est GFR (Non-Af Amer) > 60 01/13/19 06:38 Random Glucose 107 mg/dL (65-105) H 01/13/19 06:38 Calcium 8.7 mg/dL (8.4-10.2) 01/13/19 06:38 Total Bilirubin 0.3 mg/dl (0.2-1.3) 01/08/19 18:06 AST 28 U/L (14-36) 01/08/19 18:06 ALT 31 U/L (9-52) 01/08/19 18:06 Alkaline Phosphatase 133 U/L (38-126) H D 01/08/19 18:06 Troponin I < 0.0120 ng/mL (0.00-0.120) 01/08/19 20:00 Total Protein 7.0 G/DL (6.3-8.2) 01/08/19 18:06 Albumin 3.8 g/dL (3.5-5.0) 01/08/19 18:06 Globulin 3.3 gm/dL (2.2-3.9) 01/08/19 18:06 Albumin/Globulin Ratio 1.2 (1.0-2.1) 01/08/19 18:06 Triglycerides 64 mg/DL (0-149) 01/08/19 18:06 Cholesterol 215 mg/dL (0-199) H 01/08/19 18:06 LDL Cholesterol Direct 88 mg/dL (0-129) 01/08/19 18:06 HDL Cholesterol 77 MG/DL (30-70) H 01/08/19 18:06 Thyroxine (T4) 7.03 ug/dl (5.5-11.0) 01/08/19 18:06 Total T3 1.05 nmol/L (1.49-2.60) L 01/08/19 18:06 TSH 3rd Generation 0.68 mIU/ML (0.46-4.68) 01/08/19 18:06 Phenytoin 11.9 ug/ML (10-20) 01/13/19 06:38 Discharge Exam - Head Exam Head Exam: NORMAL INSPECTION Discharge Plan - Follow Up Plan Condition: FAIR Disposition: AGAINST MEDICAL ADVICE Instructions: Chest Pain (DC) Additional Instructions: follow up with your primary MD 1 week Referrals: Emory Garvey MD [Staff Provider] - Marc Starr MD [Staff Provider] - Alberto Mchugh MD [Medical Doctor] -
== END 2019-01-13 17:01 | disposition left against medical advice (07) | DRG 541 ==
LOC: H.ER 10:41 → H.ERHOLD 13:33 → OBSVTOIN 16:19 → H.ICU/CCU 21:06 → H.MEDSURG1 01-09 16:58
PROVIDERS: ADMIT Internal Medicine Pulmonary Disease; ATTEND Internal Medicine Pulmonary Disease
DX: M94.0 Chondrocostal junction syndrome [Tietze] (principal); I82.4Z2 Acute embolism and thrombosis of unspecified deep veins of left distal lower extremity; G40.909 Epilepsy, unspecified, not intractable, without status epilepticus; K50.90 Crohn's disease, unspecified, without complications; M25.511 Pain in right shoulder; Z88.6 Allergy status to analgesic agent; I10 Essential (primary) hypertension; I25.10 Atherosclerotic heart disease of native coronary artery without angina pectoris; F32.9 Major depressive disorder, single episode, unspecified; F41.9 Anxiety disorder, unspecified; J45.909 Unspecified asthma, uncomplicated; Z68.34 Body mass index [BMI] 34.0-34.9, adult; E66.9 Obesity, unspecified; E78.00 Pure hypercholesterolemia, unspecified; E78.5 Hyperlipidemia, unspecified; D64.9 Anemia, unspecified; Z79.02 Long term (current) use of antithrombotics/antiplatelets; Z85.038 Personal history of other malignant neoplasm of large intestine; Z86.711 Personal history of pulmonary embolism; Z86.718 Personal history of other venous thrombosis and embolism; Z86.73 Personal history of transient ischemic attack (TIA), and cerebral infarction without residual deficits; Z87.11 Personal history of peptic ulcer disease; Z87.891 Personal history of nicotine dependence; Z90.710 Acquired absence of both cervix and uterus